=== PATIENT | male | born 1945 | race Caucasian/White ===

== ENCOUNTER 2018-01-05 10:56 | Inpatient (IN) | payer OTHER ==
[~2018-01-05] VITALS: Ht 175.3 cm; Wt 60.8 kg
--- NOTE | 2018-01-05 13:09 | ED GENERAL ADULT ---
History of Present Illness General Chief Complaint: Upper Respiratory Sx/Fever Stated Complaint: UPPER RESP INFECTION SYMPTOMS X 1 WEEK Source: patient Exam Limitations: no limitations Vital Signs & Intake/Output Vital Signs & Intake/Output Vital Signs Date Time Temp Pulse Resp B/P B/P Pulse O2 O2 Flow FiO2 Mean Ox Delivery Rate 01/08 2302 98.0 70 18 120/62 95 Room Air 01/08 2246 Room Air 01/08 1446 98.6 78 18 124/70 95 01/08 1019 Room Air 01/08 1009 Room Air 01/08 0839 79 130/70 01/08 0638 98.6 69 18 140/78 94 Room Air ED Intake and Output 01/09 0000 01/08 1200 Intake Total 700 100 Output Total 950 625 Balance -250 -525 Intake, Oral 700 100 Number 5 Bowel Movements Output, Urine 950 625 Patient 131 lb Weight Weight Bed scale Measurement Method Allergies Coded Allergies: No Known Allergies (01/05/18) Triage Note: PT TO ED WITH COUGH/CONGESTION X1.5 WEEKS. STATES THAT HE THINKS HE HAS PNA. HAS TRIED TO SEE PCP BUT UNABLE TO GET IN. change in priority Triage Nurses Notes Reviewed? yes HPI: 72-year-old male presented to the emergency department reporting 5 days of productive cough with blood-tinged sputum. He also reports about 5 days ago he started having slurred speech and noticed that his tongue was skewed towards the right, however he reports that "the dentist will fix this" this is why he did not come into the emergency department sooner. He states that he is here because of the cough as he is concerned he may have pneumonia. He denies any chest pain, shortness of breath, fevers/chills, nausea/vomiting. (Jordin LEE,Tanisha) Reconcile Medications Aspirin (Ecotrin*) 81 MG TABLET. 1 TAB PO DAILY HEART/BLOOD (Reported) stop after 4 weeks Atorvastatin Calcium 20 MG TABLET 1 TAB PO DAILY CHOLESTEROL (Reported) Bisoprolol Fumarate/Hctz (Bisoprolol-Hctz 5-6.25 MG Tab) 5 MG-6.25 MG TABLET 1 TAB PO DAILY BP (Reported) Clopidogrel Bisulfate (Plavix) 75 MG TABLET 1 TAB PO DAILY STROKE Fosinopril Sodium 20 MG TABLET 1 TAB PO DAILY BP (Reported) (Ashlie BREWER,Andrew Bean) Past History Travel History Traveled to [place] past 21 day No Medical History Any Pertinent Medical History? 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 No (Tanisha Moses) Review of Systems Review of Systems Constitutional: Reports: see HPI. EENTM: Reports: see HPI. Respiratory: Reports: see HPI. Cardiovascular: Reports: no symptoms. GI: Reports: no symptoms. Genitourinary: Reports: no symptoms. Musculoskeletal: Reports: no symptoms. Skin: Reports: no symptoms. Neurological/Psychological: Reports: see HPI. Hematologic/Endocrine: Reports: no symptoms. Immunologic/Allergic: Reports: no symptoms. All Other Systems: Reviewed and Negative (Tanisha Moses) Physical Exam Physical Exam General Appearance: well developed/nourished, no apparent distress, alert, awake , comfortable Head: atraumatic, normal appearance Eyes: Right: other (lid drop). Ears, Nose, Throat: hearing decreased (baseline), dry mucous membranes, tongue grossly deviated toward the right Respiratory: chest non-tender, no respiratory distress, rhonchi (left lower lobe ), wheezing Cardiovascular: regular rate/rhythm, normal peripheral pulses Peripheral Pulses: 3+ radial (R), 3+ radial (L) Gastrointestinal: normal bowel sounds, soft, non-tender Back: normal inspection, normal range of motion Extremities: normal inspection, normal capillary refill, normal range of motion Neurologic/Psych: no motor/sensory deficits, awake, alert, normal gait, normal mood/affect, right eye lid droop, right tongue deviation Skin: intact, normal color, warm/dry Core Measures ACS in differential dx? No CVA/TIA Diagnosis: Yes Sepsis Present: Yes Sepsis Focused Exam Completed? Yes (Tanisha Moses) ED Sepsis Exam Date of Focused Sepsis Exam: 01/05/18 Time of Focused Sepsis Exam: 1804 Sepsis Cardiac Exam: Regular Rate/Rhythm Sepsis Resp Exam: Brigido Sepsis Cap Refill Exam: <2 Sec Sepsis Peripheral Pulse Exam: Normal Sepsis Peripheral Pulse Location: Radial Sepsis Skin Color Exam: Normal for Ethnicity Skin Temp/Moisture Exam: Warm/Dry (Jordin LEE,Tanisha) Progress Differential Diagnoses I considered the following diagnoses in my evaluation of the patient: [pneumonia , PE, copd, bronchitis] Plan of Care: Orders Procedure Date/time Status Weight 01/082 Active Speech/Hearing Treatment-Indiv 01/08 UNK Complete Neuromuscular Re-ed 01/08 UNK Complete Gait Training 01/08 UNK Complete OT EVAL LOW COMPLEX 30 MIN 01/08 UNK Complete MISSING MEDICATION FORM 01/08 UNK Active Current Medications Sig/Samir Start time Last Medication Dose Stop Time Status Admin Senna/Docusate Sodium 2 TAB DAILY PRN 01/08 1015 AC 01/08 (Senokot S) 1301 Polyethylene Glycol 17 GM DAILY 01/08 1002 AC 01/08 (Miralax) 1301 Atorvastatin Calcium 20 MG 1700 01/07 1700 AC 01/08 (Lipitor) 1736 Clopidogrel Bisulfate 75 MG DAILY 01/06 1000 AC 01/08 (Plavix) 0839 Aspirin Buffered 81 MG DAILY 01/06 0900 AC 01/08 (Ecotrin) 0839 Azithromycin 500 MG DAILY 01/06 0900 AC 01/08 (Zithromax) 0839 Sodium Chloride 250 ML (Normal Saline 0.9%) Ceftriaxone Sodium 1,000 MG DAILY 01/06 0900 AC 01/08 (Rocephin) 0839 Lisinopril 20 MG DAILY 01/06 0900 AC 01/08 (Prinivil) 0839 Heparin Sodium 5,000 UNIT Q8 01/06 0600 AC 01/08 (Porcine) 2049 Acetaminophen 650 MG Q6P PRN 01/05 2145 AC (Tylenol) Laboratory Tests 01/08/18 0639: Anion Gap 11, Estimated GFR > 60, BUN/Creatinine Ratio 32.9 H, Total Bilirubin 0.7, Direct Bilirubin 0.2, AST 114 H, ALT 83 H, Alkaline Phosphatase 109, Total Protein 5.1 L, Albumin 2.4 L, CBC w Diff NO MAN DIFF REQ, RBC 5.16, MCV 84.8, MCH 28.0, MCHC 33.0, RDW 14.3, MPV 7.3 L, Gran % 80.7 H, Lymphocytes % 12.6 L, Monocytes % 6.1, Eosinophils % 0.3, Basophils % 0.3, Absolute Granulocytes 7.9 H, Absolute Lymphocytes 1.2, Absolute Monocytes 0.6, Absolute Eosinophils 0, Absolute Basophils 0 72-year-old male with 5 days of productive cough with blood-tinged sputum, as well as 5 days history of slurred speech with right-deviated tongue. -CXR - patchy infiltrate in left lower lung, patient started on solumedrol, ceftriaxone and azithromycin to cover CAP -WBC 16.8 -D dimer 657 - CTA unremarkable except potential cholestasis however non-tender abdomen so work up was not felt to be indicated -CT head unremarkable, old infarcts present -Sepsis protocol ordered - lactic acid 2.1, fluids administered, will rpt lactic acid -Discussed with Dr. Dailey and Dr. Paredes for full admission. MOD aware. Diagnostic Imaging: Viewed by Me: Radiology Read. Discussed w/RAD: Radiology Read. Radiology Impression: PATIENT: URSULA XIONG PRESENT AGE: 72 PATIENT ACCOUNT NO: [id number] : 43 LOCATION: [facility] ORDERING PHYSICIAN: Tanisha LEE SERVICE DATE: 01/05/18 EXAM TYPE: RAD - XRY- CHEST XRAY, TWO VIEWS EXAMINATION: XR CHEST CLINICAL INFORMATION: Productive cough; question pneumonia. COMPARISON: None TECHNIQUE: 2 views of the chest were obtained. FINDINGS: The heart, great vessels, pulmonary vascular mediastinum are normal. There is hyperinflation. Best seen on the lateral projection, there is a mild patchy posterior infiltrate, likely present within the left lung field. No pleural effusion or pneumothorax is seen. There is no acute osseous abnormality. IMPRESSION: A patchy infiltrate is seen in the posterior lower thorax, likely within the left lung. The appearance is suspicious for acute pneumonia. Recommend radiographic follow-up to clearance. DICTATED BY: Jack Vaughan MD DATE/TIME DICTATED:01/05/181420 PARCEL POST DELIVERY:SANDRA DATE/TIME TRANSCRIBED:01/05/181420 CONFIDENTIAL, DO NOT COPY WITHOUT APPROPRIATE AUTHORIZATION. <Electronically signed in Other Vendor System> SIGNED BY: Jack Vaughan MD 01/05/181425, PATIENT: URSULA XIONG PRESENT AGE: 72 PATIENT ACCOUNT NO: [id number] : 43 LOCATION: ER ORDERING PHYSICIAN: Tanisha LEE SERVICE DATE: 01/05/18 EXAM TYPE: CAT - CTA CHEST-PULMONARY EMBOLISM EXAMINATION: CT ANGIOGRAM OF THE CHEST WITH AND WITHOUT CONTRAST (CT PULMONARY ANGIOGRAM FOR PE) CLINICAL INFORMATION: Hemoptysis, elevated d-dimer COMPARISON: Same day chest x-ray TECHNIQUE: Prior to contrast administration, noncontrast localization images were obtained. Subsequently, multidetector volumetric imaging was performed from the thoracic inlet to below the diaphragms following the administration of 95 mL Optiray 320 intravenous contrast. No contrast reaction reported. Sagittal, coronal, and MIP oblique sagittal reformatted images were obtained on the CT workstation, uploaded to PACS, and reviewed. Total exam dose-length product 358 mGy-cm. Per the technologist, the patient was unable to lift arms for the examination. FINDINGS: QUALITY OF STUDY/CONTRAST BOLUS: Satisfactory PULMONARY ARTERIES: No central or segmental pulmonary emboli. THORACIC AORTA: No aneurysm or dissection. LUNG: Biapical pleural-parenchymal scarring, right greater than left. Subpleural apical blebs. There is near complete opacification of the left lower lobe with sparing of the lingula. Multiple tiny cystic spaces are identified within the superior segment of the left lower lobe of uncertain etiology. The left lower bronchus appears normally aerated. However, the distal branches are compressed by this large area of confluent consolidation. There is likely a trace associated pleural effusion. The left upper lobe appears clear. There are mild upper lobe centrilobular emphysematous changes. The right lung is clear aside from dependent atelectasis. No right pleural effusion. MEDIASTINUM: Heart size is within normal range. No pericardial effusion. No pathologically enlarged mediastinal or right hilar lymph nodes. An prominent left hilar lymph node measures 9 mm in short axis. No evidence of septal bowing or right heart strain. CHEST WALL/AXILLA: No axillary or internal mammary lymphadenopathy. OSSEOUS STRUCTURES: [place] degenerative changes involving the visualized thoracic spine including diffuse idiopathic skeletal hyperostosis. No suspicious lytic or blastic lesion UPPER ABDOMEN: There is likely a small amount of wall edema surrounding the gallbladder, partially imaged. No reflux of contrast into the hepatic veins to suggest elevated right heart pressures. IMPRESSION: 1. No acute pulmonary embolism. 2. Dense consolidation involving the majority of the left lower lobe suspicious for pneumonia. Recommend repeat CT in 4-6 weeks to confirm resolution of these findings. 3. Prominent left hilar lymph node, most likely reactive. 4. Gallbladder wall edema, partially imaged. Recommend correlation for right upper quadrant symptoms. It is difficult to completely exclude acute cholecystitis. VTE: negative DICTATED BY: Sita Cano MD DATE/ TIME DICTATED:01/05/181636 PARCEL POST DELIVERY:SANDRA DATE/TIME TRANSCRIBED: 01/05/181636 CONFIDENTIAL, DO NOT COPY WITHOUT APPROPRIATE AUTHORIZATION. < Electronically signed in Other Vendor System> SIGNED BY: Sita Cano MD 164, PATIENT: URSULA XIONG PRESENT AGE: 72 PATIENT ACCOUNT NO: [id number] : 43 LOCATION: [facility] ORDERING PHYSICIAN: Tanisha LEE SERVICE DATE: 01/05/18 EXAM TYPE: CAT - CT HEAD WO IV CONTRAST EXAMINATION: CT HEAD WITHOUT CONTRAST CLINICAL INFORMATION: 5 day history of slurred speech. COMPARISON: MRI brain 02/12/2017 TECHNIQUE: Contiguous axial imaging was performed from the skull base to vertex without intravenous administration of contrast. DLP: 625 mGy-cm FINDINGS: There is no evidence of acute intracranial hemorrhage or territorial infarction. No abnormal mass effect or midline shift is seen. Mcdonald to white matter differentiation is well preserved. No extra-axial fluid collections are identified. The ventricles are normal in size. There is mild to moderate low-attenuation within the periventricular white matter including a tiny hypodensity posterior to the left posterior horn of lateral ventricle, unchanged compared to the previous MRI from 2017. Lacunar infarct within the left basal ganglia region is likewise stable. The osseous structures and soft tissues are normal. The mastoid air cells and visualized portions of the paranasal sinuses are well aerated. IMPRESSION: No acute intracranial findings. No significant interval change compared to the MRI of 02/12/2017. DICTATED BY: Sita Cano MD DATE/TIME DICTATED:01/05/181621 PARCEL POST DELIVERY:SANDRA DATE/TIME TRANSCRIBED:01/05/181621 CONFIDENTIAL, DO NOT COPY WITHOUT APPROPRIATE AUTHORIZATION. <Electronically signed in Other Vendor System> SIGNED BY: Sita Cano MD 01/05/181627 Initial ED EKG: none Hand-Off Endorsed To: Andrew Dailey MD Endorsed Time: 1809 Pending: other (admission) (JordinTanisha Hartley) Comments: Patient's pneumonia severity index score is 124 (at least), this patient has mortality risk of over 9%, hospitalization recommended. (Ashlie BREWER,Andrew Bean) Departure Departure Disposition: STILL A PATIENT Condition: Stable Clinical Impression Primary Impression: Pneumonia Qualifiers: Pneumonia type: due to unspecified organism Laterality: left Lung location: lower lobe of lung Qualified Code: J18.1 - Lobar pneumonia, unspecified organism Referrals: Madi Flores DO (PCP/Family) Departure Forms: Customer Survey General Discharge Information Admission Note Spoke With: Kory Paredes MD Documentation of Exam: Documentation of any treatments & extenuating circumstances including Concerns Regarding Discharge (functional status, medication knowledge or non-compliance, living conditions, etc.) that warrant an admission rather than observation: [ needs several days of IV abx, pending blood cultures] (Tanisha Moses) Departure Prescriptions: Current Visit Scripts Clopidogrel Bisulfate (Plavix) 1 TAB PO DAILY #90 TAB PA/INSPECTING SUPERVISOR Co-Sign Statement Statement: ED Attending supervision documentation- [x] I saw and evaluated the patient. I have also reviewed all the pertinent lab results and diagnostic results. I agree with the findings and the plan of care as documented in the PA's/INSPECTING SUPERVISOR's documentation. Patient presents for evaluation of worsening shortness of breath over the past few days. Physical examination reveals rhonchi in the left lower lung field. [] I have reviewed the ED Record and agree with the PA's/INSPECTING SUPERVISOR's documentation. [] Additions or exceptions (if any) to the PAs/INSPECTING SUPERVISOR's note and plan are summarized below: [] (Ashlie BREWER,Andrew Bean) Critical Care Note Critical Care Note Critical Care Time: non-applicable (Tanisha Moses)
[2018-01-05 13:11] LABS: ABSOLUTE BASOPHIL COUNT 0.3 /CUMM (0.0-0.2); ABSOLUTE EOSINOPHIL COUNT 0 /CUMM (0.0-0.7); ABSOLUTE GRANULOCYTE CT 14.5 /CUMM (1.4-6.5); ABSOLUTE LYMPH COUNT 0.5 /CUMM (1.2-3.4); ABSOLUTE MONOCYTE COUNT 1.5 /CUMM (0.10-0.60); BASOPHIL % 1.5 % (0.0-2.0); EOSINOPHIL % 0 % (0-5); GRANULOCYTE % 86.5 % (42.2-75.2); HEMATOCRIT 48.2 % (42-52); MEAN CORPUSCULAR HGB 28.1 PG (27.0-31.0); MEAN CORPUSCULAR HGB CONC 32.9 G/DL (33.0-37.0); MEAN CORPUSCULAR VOLUME 85.5 FL (80.0-94.0); MEAN PLATELET VOLUME 7.3 FL (7.4-10.4); PLATELET COUNT 320 /CUMM (130-400); RBC DISTRIBUTION WIDTH 14.3 % (11.5-14.5); RED BLOOD CELL CT 5.64 /CUMM (4.70-6.10); WHITE BLOOD CELL COUNT 16.8 /CUMM (4.8-10.8)
[2018-01-05] MEDS ORDERED: ATORVASTATIN CA20 M1 PO (14:25)
[2018-01-05] MEDS ORDERED: FOSINOPRIL SODI20 M1 PO (14:26)
[2018-01-05] MEDS ORDERED: BISOPROLOL-HCT1 EAC1 PO (14:26)
--- NOTE | 2018-01-05 14:26 | RADIOLOGY REPORT ---
EXAMINATION: XR CHEST CLINICAL INFORMATION: Productive cough; question pneumonia. COMPARISON: None TECHNIQUE: 2 views of the chest were obtained. FINDINGS: The heart, great vessels, pulmonary vascular mediastinum are normal. There is hyperinflation. Best seen on the lateral projection, there is a mild patchy posterior infiltrate, likely present within the left lung field. No pleural effusion or pneumothorax is seen. There is no acute osseous abnormality. IMPRESSION: A patchy infiltrate is seen in the posterior lower thorax, likely within the left lung. The appearance is suspicious for acute pneumonia. Recommend radiographic follow-up to clearance.
[2018-01-05] MEDS ORDERED: ASPIRIN EC81 M1 PO (14:27)
--- NOTE | 2018-01-05 16:28 | CT SCAN REPORT ---
EXAMINATION: CT HEAD WITHOUT CONTRAST CLINICAL INFORMATION: 5 day history of slurred speech. COMPARISON: MRI brain 02/12/2017 TECHNIQUE: Contiguous axial imaging was performed from the skull base to vertex without intravenous administration of contrast. DLP: 625 mGy-cm FINDINGS: There is no evidence of acute intracranial hemorrhage or territorial infarction. No abnormal mass effect or midline shift is seen. Mcdonald to white matter differentiation is well preserved. No extra-axial fluid collections are identified. The ventricles are normal in size. There is mild to moderate low-attenuation within the periventricular white matter including a tiny hypodensity posterior to the left posterior horn of lateral ventricle, unchanged compared to the previous MRI from 2017. Lacunar infarct within the left basal ganglia region is likewise stable. The osseous structures and soft tissues are normal. The mastoid air cells and visualized portions of the paranasal sinuses are well aerated. IMPRESSION: No acute intracranial findings. No significant interval change compared to the MRI of 02/12/2017.
--- NOTE | 2018-01-05 16:49 | CT SCAN REPORT ---
EXAMINATION: CT ANGIOGRAM OF THE CHEST WITH AND WITHOUT CONTRAST (CT PULMONARY ANGIOGRAM FOR PE) CLINICAL INFORMATION: Hemoptysis, elevated d-dimer COMPARISON: Same day chest x-ray TECHNIQUE: Prior to contrast administration, noncontrast localization images were obtained. Subsequently, multidetector volumetric imaging was performed from the thoracic inlet to below the diaphragms following the administration of 95 mL Optiray 320 intravenous contrast. No contrast reaction reported. Sagittal, coronal, and MIP oblique sagittal reformatted images were obtained on the CT workstation, uploaded to PACS, and reviewed. Total exam dose-length product 358 mGy-cm. Per the technologist, the patient was unable to lift arms for the examination. FINDINGS: QUALITY OF STUDY/CONTRAST BOLUS: Satisfactory PULMONARY ARTERIES: No central or segmental pulmonary emboli. THORACIC AORTA: No aneurysm or dissection. LUNG: Biapical pleural-parenchymal scarring, right greater than left. Subpleural apical blebs. There is near complete opacification of the left lower lobe with sparing of the lingula. Multiple tiny cystic spaces are identified within the superior segment of the left lower lobe of uncertain etiology. The left lower bronchus appears normally aerated. However, the distal branches are compressed by this large area of confluent consolidation. There is likely a trace associated pleural effusion. The left upper lobe appears clear. There are mild upper lobe centrilobular emphysematous changes. The right lung is clear aside from dependent atelectasis. No right pleural effusion. MEDIASTINUM: Heart size is within normal range. No pericardial effusion. No pathologically enlarged mediastinal or right hilar lymph nodes. An prominent left hilar lymph node measures 9 mm in short axis. No evidence of septal bowing or right heart strain. CHEST WALL/AXILLA: No axillary or internal mammary lymphadenopathy. OSSEOUS STRUCTURES: [place] degenerative changes involving the visualized thoracic spine including diffuse idiopathic skeletal hyperostosis. No suspicious lytic or blastic lesion UPPER ABDOMEN: There is likely a small amount of wall edema surrounding the gallbladder, partially imaged. No reflux of contrast into the hepatic veins to suggest elevated right heart pressures. IMPRESSION: 1. No acute pulmonary embolism. 2. Dense consolidation involving the majority of the left lower lobe suspicious for pneumonia. Recommend repeat CT in 4-6 weeks to confirm resolution of these findings. 3. Prominent left hilar lymph node, most likely reactive. 4. Gallbladder wall edema, partially imaged. Recommend correlation for right upper quadrant symptoms. It is difficult to completely exclude acute cholecystitis. VTE: negative
[2018-01-05 17:16] LABS: PT 15.5 SEC (9.4-12.5); PTT 32 SEC (25-37)
--- NOTE | 2018-01-05 18:57 | History & Physical ---
Sal Zepeda 01/05/18 7627: General Information and HPI MD Statement: I have seen and personally examined URSULA XIONG and documented this H&P. The patient is a 72 year old M who presented with a patient stated chief complaint of [Acute Urticaria]. Source of Information: patient, family Exam Limitations: no limitations History of Present Illness: Patient is a 72-year-old male past medical history significant for hypertension, past smoker for 40+ years (2ppd). He is presenting to the hospital with c/o cough produtive of phelgm, and weakness in his legs. Patient states his physical ailements began about a week and a half ago, he was experiencing a cough, productive of phlegm, and decreased appetite. Up until yesterday, patient was having clear phelgm, yesterday there was a a reddish color to it, patient unable to identify blood. Patient denies fever, chills, SOB , chest pain, Palpitations, LE swelling, sick contacts and recent travel. Patient has also been expeiencing weakness since this saturday12/30/17, he states he began to experience sudden onset weakness, he has experiencing difficulties getting out of his recliner chair. On the following day when he woke up he "felt funny". Since saturday his noticed the patient's voice began to slur, and he was having difficulty swallowing, he was unable to remember certain things which he had always know, and he "used words that didnt belong in the sentence". His also noticed the patient was having difficulty walking, he would drag his feet instead of walking normally. Allergies/Medications Allergies: Coded Allergies: No Known Allergies (01/05/18) Compliance With Home Meds: GOOD Past History Travel History Traveled to [place] past 21 day No Medical History Blood Transfusion Hx: No Neurological: NONE EENT: NONE (in Right Ear), hearing loss Cardiovascular: hypertension Respiratory: NONE Gastrointestinal: umbilical hernia Hepatic: NONE Renal: NONE Musculoskeletal: falls Psychiatric: NONE Endocrine: NONE Blood Disorders: NONE Cancer(s): NONE BAR TACKER/Reproductive: NONE Surgical History Surgical History: non-contributory Past Family/Social History Psychosocial History Where do you live? Home Who Do You Live With? spouse Services at Home: None Primary Language: [place] Smoking Status: Former Smoker (quit 20yrs ago, before 2ppd ) ETOH Use: heavy use Illicit Drug Use: denies illicit drug use Living Will? no Power of [employer] Pathology Professor/HCP? no Review of Systems Review of Systems Constitutional: Denies: chills, diaphoresis, fever. EENTM: Reports: hearing changes. Cardiovascular: Denies: chest pain, orthopena, palpitations. Respiratory: Reports: cough, sputum production. Genitourinary: Denies: discharge, dysuria, pain. Neurological/Psychological: Reports: see HPI. Exam & Diagnostic Data Last 24 Hrs of Vital Signs/I&O Vital Signs Date Time Temp Pulse Resp B/P B/P Pulse O2 O2 Flow FiO2 Mean Ox Delivery Rate 01/05 2015 Room Air 01/05 1959 98.9 63 18 131/70 93 Room Air 01/05 1752 97.6 81 18 126/71 95 01/05 1351 97.4 81 18 108/65 93 Room Air 01/05 1239 Room Air 01/05 1101 98.6 96 18 102/71 93 Room Air Intake & Output 01/05 1600 01/05 0800 01/05 0000 Intake Total Output Total Balance Patient 140 lb Weight Physical Exam General Appearance Alert, Oriented X3, Cooperative Skin No Rashes HEENT Atraumatic, PERRLA, EOMI, Mucous Membr. moist/pink, Tongue Deviates to right on protrusion, bilat. icteric sclerae Neck Supple, +2 Carotid Pulse wo Bruit, No LAD Cardiovascular Regular Rate, Normal S1, Normal S2 Lungs Clear to Auscultation, Normal Air Movement Abdomen Normal Bowel Sounds, Soft, No Tenderness, Negative Cornelius's sign, Rovsing, Rebound Neurological Normal Gait, Normal Speech, Strength at 5/5 X4 Ext, Normal Tone, Sensation Intact Extremities No Cyanosis, No Edema, Normal Pulses Last 24 Hrs of Labs/David: Laboratory Tests 01/05/18 1746: Urinalysis LIGHT H, Urine Color YEL, Urine Clarity CLEAR, Urine pH 6.0, Ur Specific [place] 1.020, Urine Protein 30 H, Urine Ketones TRACE H, Urine Nitrite POS H, Urine Bilirubin NEG, Urine Urobilinogen 4.0 H, Ur Leukocyte Esterase SMALL H, Ur Microscopic SEDIMENT EXAMINED, Urine RBC 1-3, Urine WBC 5- 10 H, Ur Epithelial Cells RARE, Urine Bacteria FEW H, Urine Hemoglobin SMALL H, Urine Glucose NEG 01/05/18 1555: Lactic Acid Cancelled 01/05/18 1256: Anion Gap 17 H, Estimated GFR > 60, BUN/Creatinine Ratio 41.0 H, Glucose 167 H, Lactic Acid 2.1, Calcium 9.0, Total Bilirubin 2.2 H, Direct Bilirubin 1.3 H , AST 93 H, ALT 64, Alkaline Phosphatase 143 H, Troponin I 0.02, Total Protein 6.4, Albumin 3.2 L, Globulin 3.2, Albumin/Globulin Ratio 1.0 L, Amylase 61, Lipase 212, CBC w Diff MAN DIFF ORDERED, RBC 5.64, MCV 85.5, MCH 28.1, MCHC 32.9 L, RDW 14.3, MPV 7.3 L, Gran % 86.5 H, Lymphocytes % 3.1 L, Monocytes % 8.9, Eosinophils % 0, Basophils % 1.5, Absolute Granulocytes 14.5 H, Absolute Lymphocytes 0.5 L, Absolute Monocytes 1.5 H, Absolute Eosinophils 0, Absolute Basophils 0.3, Platelet Estimate VERIFIED BY SMEAR, Poikilocytosis 1+, [place] Cells 1+ 01/05/18 1255: PT 15.5 H, INR 1.42 H, APTT 32, D-Dimer High Sensitivty 651 H Microbiology 01/05 2143 LOWER RESP: Respiratory Culture - ORD 01/05 2143 LOWER RESP: Gram Stain - ORD 01/05 1746 URINE ROUT: Legionella Antigen - RECD 01/05 1746 URINE ROUT: Streptococcus pneumoniae Antigen (M - RECD 01/05 1746 URINE ROUT: Urine Culture - RECD 01/05 1738 BLOOD: Blood Culture - RECD 01/05 1730 BLOOD: Blood Culture - RECD Assessment/Plan Assessment: Patient is a 72-year-old male past medical history significant for hypertension, past smoker for 40+ years (2ppd). He is presenting to the hospital with c/o cough produtive of phelgm, and weakness in his legs. Problem List: 1. Pneumonia 2. Stroke 3. Jaundice 4. Hypertension #Pneumonia: community acquired pneumonia (gram positive vs gram neg. vs atypicals), patient has strong history of EtOH use and Smoking, elevated LFTs. CXR positive for Patchy infiltrate iin the posterior lower thorax in L. Lung. CTA chest shows dense consolidation of LLL. WBC = 16.8 Plan -Ceftiaxone 1000mg Qdaily, Azithromycin 500mg - TRC - Nebulizer PRN - f/u Respiratory Sputum cultures - f/u Strep pneumno and legionella #Acute Stroke: Presenting symptoms, and PE findings are consistent with diagnosis of stroke. Symptoms present more than 24 hours, residual symptoms improving but still present. CT scan of head negative for bleeding, Plan: - Asprin 81mg - Atorvastatin 40mg - Physical, Occupation, and speech Therapy - f/u Lipid profile - f/u HbA1c - f/u TSH - Neurology Consult #Jaundice: Painless Jaundice, elevated T.bili = 2.6, Direct Bilirubin 1.3, ALP 143. CTA chest- thickening of gallbladder, difficult to exclude cholecystitis. Etiologies: alcholic hepatitis vs viral hepatitis vs biliary obstruction vs pancreatic obstruction. Plan: - CT Abdomen - Viral Hepatits Panel - Trend LFTs #Hypertension plan: - Lisinopril 20mg As Ranked By This Provider Problem List: 1. Pneumonia Qualifiers Pneumonia type: due to unspecified organism Laterality: left Lung location: lower lobe of lung Qualified Code: J18.1 - Lobar pneumonia, unspecified organism Core Measures/Misc (03/10) Acute Coronary Syndrome ACS Diagnosis: No Congestive Heart Failure Congestive Heart Failure Diagnosis No Cerebrovascular Accident CVA/TIA Diagnosis: Yes NIH Stroke Scale: Total 0 VTE (View Protocol) VTE Risk Factors Age>40 No Mechanical VTE Prophylaxis d/t Early Ambulation No VTE Pharm Prophylaxis d/t Supratherapeutic INR Sepsis (View protocol) Sepsis Present: No If YES complete Sepsis Event Note If YES complete Sepsis Event Note Jaclyn BREWERManuel 01/05/18 6598: Core Measures/Misc (03/10) Sepsis (View protocol) If YES complete Sepsis Event Note If YES complete Sepsis Event Note Resident Review Statement Resident Statement: discussed with communications intern Other Findings: 72-year-old male with past medical history of hypertension, hyperlipidemia, and right-sided decreased hearing, presented to the emergency department with 2 symptoms-- worsening productive cough, and leg weakness/slurred speech/tongue deviation. According the patient and his , the patient started having some dry cough, which later progressed to productive cough with reddish sputum, but no associated fever/chills, chest pain/shortness of breath, sick contacts, recent travels. Patient does not have any abdominal pain, but had some nausea yesterday with one episode of minimal nonbloody vomiting. No anorexia or weight changes recently. His other symptom is of sudden weakness when he wanted to get up from a reclining chair, but was unable to do so due to sudden bilateral lower extremity weakness on Saturday (12/31/17). He also had slurring of speech, and tongue deviated to the right upon protrusion, word salad, which since then has gradually improved but the patient still has lower extremity weakness which is better, slurring of speech, tongue deviation, but as well oriented, comprehends well, and responds appropriately. He does not have history of any head trauma, fall, bowel/bladder incontinence, changes in sensation, blurring of vision, double vision, facial deviation. Labs and images as mentioned above. He is being admitted in the general medical floor for the management of following issues: #Community-acquired pneumonia Patient's clinical feature of worsening respiratory symptoms, and because of finding of consolidation, is suggestive of community-acquired pneumonia. His liver function is abnormal, which is also seen in some atypical pneumonia, thus needs broad coverage with both ceftriaxone and azithromycin while we wait for lower respiratory cultures. He does not have increased oxygen demand but would definitely benefit from respiratory therapy evaluation has his bilateral air entry is poor. I doubt that he would benefit from any steroids at this time. Will follow urinary streptococcal and Legionella antigen as well. #Possible acute stroke, with resolving symptoms, >24 hr duration ago Patient's clinical feature of sudden onset bilateral leg weakness, slurring of speech, tongue deviation, lasting more than 24 hours, which is now gradually resolving, still with gross weakness and slurring of speech, tongue deviation is suggestive of stroke, likely resolving. His CAT scan is negative for any bleed, and when compared with previous MRI shows some lacunar infarcts, but no gross area of acute ischemia. However he would benefit from neurology consultation, frequent neurochecks, continuation of aspirin, and an increased dose to high intensity statin. Need to follow HbA1c, TSHr and lipid profile in the morning. Would defer for further cardiac testing until morning, for e.g. echocardiogram. PT, OT, ST has been ordered already. #Abnormal liver function test, with gallbladder wall thickening Patient has abnormal liver function test in the context of gallbladder wall thickening with a negative Cornelius sign, and no changes in his bowel/bladder function recently. He does have icterus, and has history of chronic alcoholism, which makes alcoholic hepatitis likely. However, other causes of abnormal liver function test like viral hepatitis needs to be ruled out. Alongside, any pancreaticobiliary abnormality has to be ruled out as well which can be done by CT abdomen in the morning. Patient has been kept nothing by mouth for the same reason. Atypical pneumonia can sometimes cause abnormal liver function test, which typically resolves after the primary infection is treated. Would defer decision to consult GI to the morning team after obtaining imaging (CT abd- pelvis) and blood reports, including viral hepatitis, repeat LFTs. #Will continue his home dose of antiHTN meds,, but holding Bisoprolol/HCTZ for logistic reason. Plan to restart it as soon as possible. #Diet: Patient passed bedside swallow eval and can eat, HHD. #DVT ppx: SQ Heparin (risk of hemorrhagic transformation reduces as days pass by , liang with no CT changes of significant ischemic zone). #Code status: Full code Bright BREWER,Walton 01/05/18 6318: General Information and HPI MD Statement: I have seen and personally examined URSULA XIONG and documented this H&P. The patient is a 72 year old M who presented with a patient stated chief complaint of [cough and lower extremitiy weakness]. Source of Information: patient Exam Limitations: no limitations Allergies/Medications Home Med list Aspirin (Ecotrin*) 81 MG TABLET.DR 1 TAB PO DAILY HEART/BLOOD (Reported) Atorvastatin Calcium 20 MG TABLET 1 TAB PO DAILY CHOLESTEROL (Reported) Bisoprolol Fumarate/Hctz (Bisoprolol-Hctz 5-6.25 MG Tab) 5 MG-6.25 MG TABLET 1 TAB PO DAILY BP (Reported) Fosinopril Sodium 20 MG TABLET 1 TAB PO DAILY BP (Reported) Past History Medical History EENT: hearing loss Cardiovascular: hypertension Gastrointestinal: umbilical hernia Musculoskeletal: falls Past Family/Social History Psychosocial History Smoking Status: Former Smoker ETOH Use: heavy use Illicit Drug Use: denies illicit drug use Employment History Employment Retired Review of Systems Review of Systems Constitutional: Reports: see HPI. Exam & Diagnostic Data Last 24 Hrs of Vital Signs/I&O Vital Signs Date Time Temp Pulse Resp B/P B/P Pulse O2 O2 Flow FiO2 Mean Ox Delivery Rate 01/05 2015 Room Air 01/05 1959 98.9 63 18 131/70 93 Room Air 07/15 1752 97.6 81 18 126/71 95 01/05 1351 97.4 81 18 108/65 93 Room Air 01/05 1239 Room Air 01/05 1101 98.6 96 18 102/71 93 Room Air Intake & Output 01/05 1600 01/05 0800 01/05 0000 Intake Total Output Total Balance Patient 140 lb Weight Physical Exam General Appearance Alert, Oriented X3, Cooperative, No Acute Distress Skin No Rashes HEENT Atraumatic, PERRLA, EOMI Neck Supple, No JVD, +2 Carotid Pulse wo Bruit Cardiovascular Regular Rate, Normal S1, Normal S2 Lungs Clear to Auscultation, Normal Air Movement Abdomen Normal Bowel Sounds, Soft, No Tenderness, Negative Cornelius's sign, Rovsing, Rebound Last 24 Hrs of Labs/David: Laboratory Tests 01/05/18 1746: Urinalysis LIGHT H, Urine Color YEL, Urine Clarity CLEAR, Urine pH 6.0, Ur Specific [place] 1.020, Urine Protein 30 H, Urine Ketones TRACE H, Urine Nitrite POS H, Urine Bilirubin NEG, Urine Urobilinogen 4.0 H, Ur Leukocyte Esterase SMALL H, Ur Microscopic SEDIMENT EXAMINED, Urine RBC 1-3, Urine WBC 5- 10 H, Ur Epithelial Cells RARE, Urine Bacteria FEW H, Urine Hemoglobin SMALL H, Urine Glucose NEG 01/05/18 1555: Lactic Acid Cancelled 01/05/18 1256: Anion Gap 17 H, Estimated GFR > 60, BUN/Creatinine Ratio 41.0 H, Glucose 167 H, Lactic Acid 2.1, Calcium 9.0, Total Bilirubin 2.2 H, Direct Bilirubin 1.3 H , AST 93 H, ALT 64, Alkaline Phosphatase 143 H, Troponin I 0.02, Total Protein 6.4, Albumin 3.2 L, Globulin 3.2, Albumin/Globulin Ratio 1.0 L, Amylase 61, Lipase 212, CBC w Diff MAN DIFF ORDERED, RBC 5.64, MCV 85.5, MCH 28.1, MCHC 32.9 L, RDW 14.3, MPV 7.3 L, Gran % 86.5 H, Lymphocytes % 3.1 L, Monocytes % 8.9, Eosinophils % 0, Basophils % 1.5, Absolute Granulocytes 14.5 H, Absolute Lymphocytes 0.5 L, Absolute Monocytes 1.5 H, Absolute Eosinophils 0, Absolute Basophils 0.3, Platelet Estimate VERIFIED BY SMEAR, Poikilocytosis 1+, [place] Cells 1+ 01/05/18 1255: PT 15.5 H, INR 1.42 H, APTT 32, D-Dimer High Sensitivty 651 H Microbiology 01/05 2143 LOWER RESP: Respiratory Culture - ORD 01/05 2143 LOWER RESP: Gram Stain - ORD 01/05 1746 URINE ROUT: Legionella Antigen - COMP 01/05 174 URINE ROUT: Streptococcus pneumoniae Antigen (M - COMP 01/05 174 URINE ROUT: Urine Culture - RECD 01/05 173 BLOOD: Blood Culture - RECD 01/05 173 BLOOD: Blood Culture - RECD Diagnostic Data CXR Results A patchy infiltrate is seen in the posterior lower thorax, likely within the left lung. The appearance is suspicious for acute pneumonia. Recommend radiographic follow-up to clearance. Other Results CTA - Dense consolidation involving the majority of the left lower lobe suspicious for pneumonia. Recommend repeat CT in 4-6 weeks to confirm resolution of these findings. - Prominent left hilar lymph node, most likely reactive. - Gallbladder wall edema, partially imaged. Recommend correlation for right upper quadrant symptoms. It is difficult to completely exclude acute cholecystitis. Core Measures/Misc (03/10) Sepsis (View protocol) If YES complete Sepsis Event Note If YES complete Sepsis Event Note Attending MD Review Statement Attending Statement Attending MD Statement: examined this patient, discuss w/resident/PA/MANAGING MANAGER, agreed w/resident/PA/MANAGING MANAGER, reviewed EMR data (avail), reviewed images, amended to note Attending Assessment/Plan: This Patient is a 72-year-old white male with a significant past medical history for hypertension, past smoker for 40+ years (2ppd). He is presenting to the hospital with c/o cough productive of phlegm, and weakness in his legs. He was in his usual state of health until about a week and a half ago, he was experiencing a cough, productive of phlegm, and decreased appetite. Yesterday there was a reddish color to his sputum. The patient has also been experiencing weakness since six days prior to admission, he states he began to experience sudden onset weakness, he has experiencing difficulties getting out of his recliner chair. On the following day when he woke up he had "felt funny". Since Saturday his noticed the patient's voice began to slur, and he was having difficulty swallowing, he was unable to remember certain things which he had always know, he "used words that didnt belong in the sentence". His also noticed the patient was having difficulty walking, he would drag his feet instead of walking normally. He is on baby aspirin at home. He was found to be afebrile with an elevated WBC count. Cultures pending and his CXR shows a patchy infiltrate in the posterior lower thorax, left lung. CTA Chest shows Dense consolidation involving the majority of the left lower lobe suspicious for pneumonia. Gallbladder wall edema, partially imaged. Recommend correlation for right upper quadrant symptoms. LFTs are elevated. Currently being treated for community-acquired pneumonia, neurologic changes and will need further workup for gallbladder edema and elevated LFTs.
[2018-01-06 06:29] VITALS: BP 118/70
--- NOTE | 2018-01-06 07:27 | PN- Housestaff ---
See Addendum Subjective Follow-up For: Pneumonia Subjective: Patient seen and examined bedside, no acute events overnight, afebrile. Patient states that his cough is improved, and that he is feeling better. Denies fever or night sweats, chills, blurry vision, difficulty swallowing, tingling, numbness, weakness. Review of Systems Constitutional: Reports: see HPI. Objective Last 24 Hrs of Vital Signs/I&O Vital Signs Date Time Temp Pulse Resp B/P B/P Pulse O2 O2 Flow FiO2 Mean Ox Delivery Rate 01/06 0650 97.9 01/06 0629 68 20 118/70 94 Room Air 01/05 2015 Room Air 01/05 1959 98.9 63 18 131/70 93 Room Air 01/05 1752 97.6 81 18 126/71 95 01/05 1351 97.4 81 18 108/65 93 Room Air 01/05 1239 Room Air 01/05 1101 98.6 96 18 102/71 93 Room Air Intake & Output 01/06 0800 01/06 0000 01/05 1600 Intake Total 160 Output Total 300 150 Balance -300 10 Intake, Oral 160 Output, Urine 300 150 Patient 140 lb 140 lb Weight Weight Reported by Patient Measurement Method Physical Exam General Appearance: Alert, Oriented X3, Cooperative Skin: No Rashes HEENT: Atraumatic, PERRLA, EOMI Neck: Supple, No LAD Cardiovascular: Regular Rate, Normal S1, Normal S2 Lungs: Clear to Auscultation, Normal Air Movement Abdomen: Normal Bowel Sounds, Soft, No Tenderness Neurological: Strength at 5/5 X4 Ext, Normal Tone, Sensation Intact, Tongue deviates to right on protrusion Extremities: No Cyanosis, No Edema, Normal Pulses Vascular: Normal Pulses, Pulses Symmetrical Assessment/Plan Assessment: Patient is a 72-year-old male past medical history significant for hypertension, past smoker for 40+ years (2ppd). He is presenting to the hospital with c/o cough produtive of phelgm, and weakness in his legs. Problem List: 1. Pneumonia 2. Stroke 3. Jaundice 4. Hypertension #Pneumonia: community acquired pneumonia (gram positive vs gram neg. vs atypicals), patient has strong history of EtOH use and Smoking, elevated LFTs. CXR positive for Patchy infiltrate iin the posterior lower thorax in L. Lung. CTA chest shows dense consolidation of LLL. Legionella and Stre. pneumo is negative. WBC = 16.8, trending down to 14.2 Plan -Ceftiaxone 1000mg Qdaily, Azithromycin 500mg - TRC - Nebulizer PRN - f/u Respiratory Sputum cultures #Acute Stroke while on 81mg at home: Presenting symptoms, and PE findings are consistent with diagnosis of stroke. Symptoms present more than 24 hours, residual symptoms improving but still present. CT scan of head negative for bleeding. MRI negative for acute bleeds or infarcts, presence of chronic microvascular ischemia and lacunar infarcts. Plan: - Plavix 75mg - Atorvastatin 40mg - Physical, Occupation, and speech Therapy - Neurology Consult - Echocardiogram #Jaundice: Painless Jaundice, elevated T.bili = 2.6, Direct Bilirubin 1.3, ALP 143. CTA chest- thickening of gallbladder, difficult to exclude cholecystitis. Etiologies: alcholic hepatitis vs viral hepatitis vs biliary obstruction vs pancreatic obstruction. CT abdomen shows Gallbladder thickening with small layering of calcified gallstones, findings suspicious for acute cholecystitis. T.bili and ALP normalized on 01/06/18. Hep panel Non-reactive Plan: - Trend LFTs until normalize #Hypertension plan: - Lisinopril 20mg Patient will be transferred to [facility], as he appears to have suffered an acute stroke on saturday12/31/17. Problem List: 1. Pneumonia Pain Ratin Pain Location: n/a Pain Goal: Remain pain free Pain Plan: n.a Tomorrow's Labs & Rationales: CBC, BEP
[2018-01-06 08:36] LABS: ABSOLUTE BASOPHIL COUNT 0 /CUMM (0.0-0.2); ABSOLUTE EOSINOPHIL COUNT 0 /CUMM (0.0-0.7); ABSOLUTE LYMPH COUNT 0.8 /CUMM (1.2-3.4); ABSOLUTE MONOCYTE COUNT 0.4 /CUMM (0.10-0.60); BASOPHIL % 0 % (0.0-2.0); EOSINOPHIL % 0 % (0-5); HEMATOCRIT 44.7 % (42-52); MEAN CORPUSCULAR HGB 28.2 PG (27.0-31.0); MEAN CORPUSCULAR HGB CONC 33.3 G/DL (33.0-37.0); MEAN CORPUSCULAR VOLUME 84.8 FL (80.0-94.0); MEAN PLATELET VOLUME 7.3 FL (7.4-10.4); PLATELET COUNT 318 /CUMM (130-400); RBC DISTRIBUTION WIDTH 14.1 % (11.5-14.5); RED BLOOD CELL CT 5.28 /CUMM (4.70-6.10); WHITE BLOOD CELL COUNT 14.2 /CUMM (4.8-10.8)
[2018-01-06 10:11] LABS: GRANULOCYTE % 91.5 % (42.2-75.2)
--- NOTE | 2018-01-06 11:14 | Event Note ---
Event Note Event Note: S: Mr. Thapa is a 72-year-old male admitted for cough and weakness being treated for pneumonia also noted to have right-sided weakness with tongue deviation to the right and history of lacunar stroke likely secondary to new acute onset stroke. It seems like the symptoms began on 12/31/17 but the patient was initially admitted to general medicine without a stroke workup. B: Mr. Thapa is a 72-year-old male with past medical history of hypertension here being treated for pneumonia. A/R: Patient is a history of a lacunar stroke that is evident on the dry CT scan but he is now presenting with signs and symptoms of a new acute stroke. Even though the symptoms started on 12/31/17, telemetry monitoring and workup are still warranted. Stroke occurred while the patient was on aspirin and so we will start him on clopidogrel, high-dose statin, perform MRI brain, CTA head/ neck with IV contrast, echocardiogram, neurology and cardiology consults, and transfer to telemetry. He is currently n.p.o. pending swallow evaluation as well.
--- NOTE | 2018-01-06 12:07 | MRI REPORT ---
EXAMINATION: MR BRAIN WITHOUT CONTRAST CLINICAL INFORMATION: Stroke. COMPARISON: CT scan of the head 01/05/2018. MRI scan the brain 02/12/2017. TECHNIQUE: MRI of the brain without contrast was obtained using routine sequences. FINDINGS: No diffusion abnormalities are identified to suggest an acute or subacute infarct. No mass effect or midline shift is seen. The ventricles and sulci are commensurately prominent consistent with mild diffuse volume loss. There is a small cavum velum interpositum. The study redemonstrates multiple scattered areas of T2 and FLAIR hyperintensity in the periventricular and subcortical white matter, consistent with chronic microvascular ischemic disease. There is a lacunar infarct in the left basal ganglia anteriorly, and there are small lacunar infarcts posterior to the bodies of the lateral ventricles, more prominent on the left. There is a lacunar infarct in the right cerebellar hemisphere. Overall, these findings appear stable. No discrete extra-axial fluid collections are seen; there is mild commensurate prominence of the extra-axial CSF around the cerebral convexities and midbrain. The brainstem appears normal. No pathologic magnetic susceptibility artifact is identified on the gradient refocused acquisition. The craniovertebral junction, marrow signal, and midline structures are normal. The major intracranial flow-voids at the level of the [place] are preserved. The dural venous sinus flow-voids are maintained. There is moderate fluid at the left mastoid tip. There are cysts in the bilateral inferior maxillary sinuses. IMPRESSION: 1. There are no acute bleeds or infarcts. No masses are demonstrated. 2. There is diffuse volume loss and there are chronic microvascular ischemic disease and lacunar infarcts.
--- NOTE | 2018-01-06 12:35 | CT SCAN REPORT ---
EXAMINATION: CT ANGIOGRAM OF THE HEAD CT ANGIOGRAM OF THE NECK CLINICAL INFORMATION: Stroke and tongue deviation. COMPARISON: MRI scan earlier 01/06/[address] scan of the head 01/05/2018. TECHNIQUE: Test bolus series followed by intravenous administration 70 mL of Optiray 350. Helical imaging was performed in the axial plane from the mediastinum to the skull vertex. A post contrast contrast axial CT scan of the head was obtained. The degree of stenosis is based off NASCET criteria. The data was processed at the space technologist workstation for generation of MIP images. Three-dimensional volume rendered reformatted images were also generated at an offline 3-D workstation. DLP: 2048.9 mGy-cm FINDINGS: CT Head: There is no evidence of acute intracranial hemorrhage or territorial infarction. No abnormal mass-effect or midline shift is seen. Mcdonald to white matter differentiation is well preserved. No extra-axial fluid collections are identified. There is no abnormal enhancement. The ventricles and sulci are slightly commensurately prominent consistent with mild diffuse volume loss. There are areas of low-attenuation the periventricular and subcortical white matter consistent with chronic microvascular ischemic disease. Lacunar infarcts are redemonstrated in the left basal ganglia, posterior to the left greater than right bodies of the lateral ventricles and in the right cerebellar hemisphere. There are no acute osseous findings. There are degenerative changes of the temporomandibular joints. The soft tissues are unremarkable. There is fluid in the left mastoid air cells. There are retention cysts in the bilateral maxillary sinuses. There is a mildly expansile low density lesion in the anterior left maxilla, which is not related to any dental structures at present. There is a small focus of increased density centrally. It is nonspecific, and may be consistent with sequelae of a periapical granuloma, although an odontogenic cyst cannot be excluded given its position. CTA Neck: There are multiple atheromatous calcifications of the aortic arch. There is a classic configuration of the arch. There are atheromatous calcifications at the origin of the right subclavian artery. Both subclavian arteries are widely patent. The bilateral common carotid arteries are widely patent. There are mild atheromatous calcifications of the cavernous internal carotid arteries bilaterally. There is no significant stenosis. Both cervical internal carotid arteries are widely patent. The origins of both vertebral arteries are well-demonstrated. The left vertebral artery is markedly dominant compared to the right. Although the right vertebral artery has a thinner caliber, it appears to be uniform and patent throughout its cervical course extending intradurally. Nonvascular: There are emphysematous changes in the upper lung zones bilaterally. There is pleural-parenchymal scarring at the right lung apex. There are subpleural bullae, bilaterally. The thyroid gland has heterogenous density end there is a 5 mm area of low density nodule in the right lobe. There is a 1.6 cm sebaceous cyst in the right mid neck laterally. There is no cervical lymphadenopathy. CTA Head: The cavernous internal carotid arteries are patent bilaterally. The supraclinoid internal carotid arteries and their bifurcations are normal. The anterior and middle cerebral arteries bilaterally demonstrate uniform caliber without evidence of focal stenosis, aneurysm or vascular malformation. The anterior communicating artery is normal. In the posterior circulation the left vertebral artery is dominant. There is a minimal amount of atheromatous calcification without significant stenosis in the inferior left vertebral artery. The basilar artery is tortuous but but has uniform caliber. The right posterior cerebral artery arises primarily off the anterior circulation which is a normal variant. The posterior cerebral arteries are patent bilaterally. The venous sinuses opacify normally. IMPRESSION: 1. There are no acute bleeds or territorial infarcts. There are no masses or areas of abnormal enhancement. 2. There is mild diffuse volume loss. There are chronic microvascular ischemic changes and lacunar infarcts. 3. There are degenerative changes of the temporomandibular joints. There is an expansile cyst in the anterior left mandible. 4. There are mild atheromatous calcifications in the arch, carotid bifurcations and left vertebral artery. There are no focal stenoses, aneurysms or vascular malformations in the head or neck vascular structures. 5. The thyroid gland has heterogenous density with a 5 mm area of low density. In view of the patient's age and sex a nonemergent thyroid ultrasound is suggested for further assessment.
--- NOTE | 2018-01-06 13:42 | Event Note ---
Event Note Event Note: Patient is a 72-year-old male past medical history significant for hypertension, hyperlipidemia, past smoker for 40+ years (2ppd). He presented to the hospital with c/o cough produtive of phelgm, and weakness in his legs. His other symptom is of sudden weakness when he wanted to get up from a reclining chair, but was unable to do so due to sudden bilateral lower extremity weakness on Saturday (12/31/17). He also had slurring of speech, and tongue deviated to the right upon protrusion, word salad, which since then has gradually improved but the patient still has lower extremity weakness which is better, slurring of speech, tongue deviation, but as well oriented, comprehends well, and responds appropriately. He does not have history of any head trauma, fall, bowel/bladder incontinence, changes in sensation, blurring of vision, double vision, facial deviation. Patient was initially admitted to [facility] on 01/05/2018 and later transferred to telemetry on 01/06/2018 for further stroke workup. #Community-acquired pneumonia Patient presented with worsening productive cough with chest x-ray findings suggestive of pneumonia. He was admitted initially to general medicine for management of community-acquired pneumonia. Given his strokelike symptoms, ongoing for last 1 week there is possibility of aspiration leading to pneumonia. * Monitor vitals every shift * Maintain saturation above 90 * Continue IV ceftriaxone and azithromycin * Follow-up blood cultures, sputum cultures * Monitor for fever, leukocytosis. Possible subacute stroke Patient's clinical feature of sudden onset bilateral leg weakness, slurring of speech, tongue deviation, lasting more than 24 hours, which is now gradually resolving, still with weakness and slurring of speech, tongue deviation is suggestive of stroke, likely resolving. His CAT scan is negative for any bleed, and when compared with previous MRI shows some lacunar infarcts, but no gross area of acute ischemia. * neurology consultation * frequent neurochecks * MRI head was done which showed no acute bleed or infarcts * plavix 75 * aspirin 81 * Lipitor 80 * Echocardiogram pending * Cardiology was consulted * Passed bedside swallow/formal swallow * PT OT * Speech therapy Gallbladder wall thickening Patient has abnormal liver function test in the context of gallbladder wall thickening with a negative Cornelius sign. He does have icterus, and has history of chronic alcoholism, which makes alcoholic hepatitis likely. However, other causes of abnormal liver function test like viral hepatitis needs to be ruled out. Atypical pneumonia can sometimes cause abnormal liver function test, which typically resolves after the primary infection is treated. * Follow-up hepatitis panel * Repeat LFTs in a.m. * Alcohol cessation counseling * CAT scan abdomen showed mild gallbladder wall thickening and enhancement of gallbladder with tiny calcified gallstones. * Will get ultrasound abdomen Abnormal urine analysis Urine analysis positive for nitrite, esterase, WBCs and bacteria. He is asymptomatic denied any frequency urgency dysuria fever, chills. However he has leukocyte count elevation. * Urine cultures growing gram-positive cocci * Will follow up final urine cultures and sensitivities * Adjust antibiotics accordingly Hypertension Will continue his home dose of antiHTN meds LISINOPRIL but holding Bisoprolol/HCTZ #Diet: REGULAR DIET #DVT ppx: SQ Heparin #Code status: Full code
--- NOTE | 2018-01-06 14:17 | Cons- Cardiology ---
General Information and HPI Consulting Request Date of Consult: 01/06/18 Requested By: Kory Paredes MD Reason for Consult: Suspected stroke. Source of Information: patient, family, old records Exam Limitations: clinical condition, physical impairment History of Present Illness: Mr. Oj Thapa is a 72-year-old male with a history of former heavy tobacco use (discontinued a 2 ppd 40+ yrs history ~20 years ago), hypertension , dyslipidemia, and lacunar stroke by head CT who presented to the ED on with a 1-1/2 week of productive cough, congestion, decreased by mouth intake, without any shortness of breath, lower extremity edema, chest discomfort , palpitations, fever, chills, sick contacts, etc. Additionally, he has been expeiencing generalized weakness since Saturday, 2017 with difficulty arising from his recliner. After awakening on 12/31/2017 he "felt funny", had difficulty with his memory, speech, swallowing, and gait. Allergies/Medications Allergies: Coded Allergies: No Known Allergies (01/05/18) Home Med List: Aspirin (Ecotrin*) 81 MG TABLET.DR 1 TAB PO DAILY HEART/BLOOD (Reported) stop after 4 weeks Atorvastatin Calcium 20 MG TABLET 1 TAB PO DAILY CHOLESTEROL (Reported) Bisoprolol Fumarate/Hctz (Bisoprolol-Hctz 5-6.25 MG Tab) 5 MG-6.25 MG TABLET 1 TAB PO DAILY BP (Reported) Clopidogrel Bisulfate (Plavix) 75 MG TABLET 1 TAB PO DAILY STROKE Fosinopril Sodium 20 MG TABLET 1 TAB PO DAILY BP (Reported) Review of Systems Review of Systems: A 14 point system review was obtained was noncontributory, other than as above. Past History Travel History Traveled to [place] past 21 day No Medical History Blood Transfusion Hx: No Neurological: NONE EENT: hearing loss Cardiovascular: hypertension, hyperlipidemia Respiratory: NONE Gastrointestinal: umbilical hernia Hepatic: NONE Renal: NONE Musculoskeletal: falls Psychiatric: NONE Endocrine: NONE Blood Disorders: NONE Cancer(s): NONE MENTAL HEALTH PROGRAM SPECIALIST/Reproductive: NONE Surgical History Surgical History: non-contributory Psychosocial History Where Do You Live? Home Who Do You Live With? spouse Services at Home: None Primary Language: Mohawk Smoking Status: Former Smoker ETOH Use: heavy use Illicit Drug Use: denies illicit drug use Living Will? no Power of Extrusion Line Operator/HCP? no Employment History Employment: Retired Exam & Diagnostic Data Vital Signs and I&O Vital Signs Date Time Temp Pulse Resp B/P B/P Pulse O2 O2 Flow FiO2 Mean Ox Delivery Rate 01/06 1349 Room Air 01/06 0851 68 118/70 01/06 0800 Room Air 01/06 0650 97.9 01/06 0629 68 20 118/70 94 Room Air 01/05 2015 Room Air 01/05 1959 98.9 63 18 131/70 93 Room Air 01/05 1752 97.6 81 18 126/71 95 Intake & Output 01/06 1600 01/06 0800 01/06 0000 01/05 1600 01/05 0800 01/05 0000 Intake Total 160 Output Total 300 150 Balance -300 10 Intake, Oral 160 Output, Urine 300 150 Patient 140 lb 140 lb Weight Weight Reported by Patient Measurement Method Physical Exam: Well-developed, thin elderly male in no acute distress. Vital signs: See above. HEENT: Normocephalic, atraumatic, EOMI, slightly dry mucous membranes. Neck: No JVD, no bruits. Lungs: Decreased breath sounds bilaterally. Heart: S1, S2 no murmur, gallop, or rub. PMI not well felt. Abdomen: Soft, nontender, positive bowel sounds. Extremities: No edema. Diagnostic Data CXR Results 01/05/2018: 1. A patchy infiltrate is seen in the posterior lower thorax, likely within the left lung. The appearance is suspicious for acute pneumonia. 2. Recommend radiographic follow-up to clearance. Other Results Brain MRI 01/06/2018: 1. There are no acute bleeds or infarcts. No masses are demonstrated. 2. There is diffuse volume loss and there are chronic microvascular ischemic disease and lacunar infarcts. Assessment/Plan Assessment/Plan [id number] w/ hx fmr heavy tob use (2 ppd 40+ yrs), HTN, HLD, stroke (lacunar by head CT) who presented to the ED on 01/05/2018 with a 1-1/2 wk of prod cough, congestion, decreased by mouth intake, w/o SOB, LE edema, CP, palps, fever, chills, sick contacts, etc. Additionally, he has been expeiencing generalized weakness since Saturday, 2017 w/ difficulty arising from his recliner. After awakening on 12/31/2017 he "felt funny", had difficulty w/ his memory, speech, swallowing, and gait w/ the suspicion that he is having a neurological event. Recommendation: * No evidence of ECG in computer and would obtain a baseline tracing. * Transferred to telemetry to exclude paroxysmal atrial fibrillation. * Echocardiogram to help exclude a cardioembolic source for his symptoms. * Exclude carotid artery disease. * Enhance antiplatelet regimen, if no contraindication. * High dose statin therapy. * Swallowing evaluation. * Neurology consultation. * DVT prophylaxis. Consult Acknowledgment - Thank you for your consult request.
--- NOTE | 2018-01-06 14:24 | CT SCAN REPORT ---
EXAMINATION: CT ABDOMEN AND PELVIS WITH CONTRAST CLINICAL INFORMATION: Abnormal LFTs. Long history of EtOH use. Gallbladder wall thickness. Amylase lipase normal. Rule out pancreatic abnormality. COMPARISON: CTA of the chest dated 01/05/2018. CT scan of the abdomen and pelvis dated 01/10/2009. TECHNIQUE: Multidetector CT volumetric acquisition of the abdomen and pelvis was performed after the administration of 50 mL of intravenous Optiray 350. The data set was reformatted in the sagittal and coronal planes and reviewed on an independent workstation. DLP: 280.64 mGy-cm. FINDINGS: LOWER CHEST: There is dense consolidation seen in the left lower lobe and dependent atelectatic changes in the right lower lobe. Some minimal platelike atelectasis is seen medially within the lingula and right middle lobe. No pleural effusion is noted. LIVER, GALLBLADDER, BILIARY TREE: Liver normal size and attenuation. No focal cystic or solid mass or intra-or extrahepatic ductal dilatation. Hepatic and portal veins patent. There is mild wall thickening and enhancement of the gallbladder noted with multiple tiny calcified gallstone seen layering in the dependent portion of the gallbladder. Minimal pericholecystic reticular opacities noted. Findings are suggestive of acute cholecystitis. PANCREAS: Diffusely atrophic and otherwise unremarkable. No ductal dilatation, mass, or surrounding stranding. SPLEEN: Normal size and appearance. Splenic vein patent. ADRENAL GLANDS AND KIDNEYS: Adrenal glands normal. The right kidney is asymmetrically smaller compared to the contralateral left kidney, measuring 8.0 cm versus 10.7 cm on the left side. Prominent lobulation of the right renal cortex is seen and mild renal cortical thinning is noted. There is a 0.7 cm low-attenuation mass in the upper pole of the right kidney, too small to characterize, but unchanged dating back to 2008, consistent with a benign etiology, such as a cyst. No suspicious focal mass, hydronephrosis, nephrolithiasis or perinephric stranding. There is a prominent extrarenal pelvis seen on the right side with slight dilatation of the right renal collecting system and decompression of the right ureter, consistent with a UPJ physiology. Small focal cortical scar is seen in the upper pole of the left kidney. URETERS AND BLADDER: Ureters decompressed and within normal limits. Bladder is opacified by the excreted contrast and is markedly distended, extending into the lower abdomen. Two right-sided bladder diverticula are seen. PELVIC ORGANS: Unremarkable. GASTROINTESTINAL TRACT: Moderate amount of fecal residue seen in the colon, especially in the descending colon and the distended rectum. The few scattered descending colonic and sigmoid diverticula are seen with no evidence of acute diverticulitis. Small bowel loops decompressed and unremarkable. Appendix in right lower quadrant normal. LYMPHOVASCULAR STRUCTURES: Abdominal aorta normal in caliber. Mild atherosclerotic calcifications of the aorta and branch vessels are seen, including the coronary arteries. No periaortic collections. No abdominal or pelvic adenopathy or free fluid collection. BONES: Moderate vertebral spondylosis is seen in the lower thoracic and upper and mid lumbar spine. Mild spondylosis also seen in the lower lumbar spine. IMPRESSION: 1. Abnormal appearance of the gallbladder with wall thickening and enhancement and a stable small layering calcified gallstone seen. Findings are suspicious for acute cholecystitis. Close clinical correlation requested. No evidence of common bile duct obstruction or choledocholithiasis. 2. The pancreas is diffusely atrophic, similar to the prior study from 01/10/2009. No focal pancreatic mass, ductal dilatation or evidence of pancreatitis seen. 3. Dense consolidation in left lower lobe, perhaps due to pneumonia or aspiration pneumonia. Clinical correlation requested. 4. Asymmetrically smaller right kidney with mild renal cortical thinning. 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 Close clinical correlation requested. 5 Tiny upper pole right renal low-attenuation mass is stable dating back to 2008, consistent with a benign cyst. 6. Markedly distended bladder. Consider Avila decompression if patient is unable to void. 2 right-sided bladder diverticula are also noted. 7. Mild coronary artery calcifications partially included.
[2018-01-06 15:18] VITALS: BP 112/66
--- NOTE | 2018-01-06 18:21 | Cons- Neurology ---
General Information and HPI Consulting Request Date of Consult: 01/06/18 Requested By: Reggie BREWER,Kory Escalante History of Present Illness: 72-year-old male noted by he has had change in status over approximately the past 10 days This was initiated by a persistent cough but no fever Patient then noted that he had a pain in his mouth states that he became increasingly weak Has had no recent falls but did have a series of falls in July He had to hold on when walking and has been walking with a walker He has had for a period of time difficulty following commands There has been no head trauma and no history of fever Complaint of generalized weakness but no focal weakness No history of change in vision or significant headaches Allergies/Medications Allergies: Coded Allergies: No Known Allergies (01/05/18) Home Med List: Aspirin (Ecotrin*) 81 MG TABLET.DR 1 TAB PO DAILY HEART/BLOOD (Reported) Atorvastatin Calcium 20 MG TABLET 1 TAB PO DAILY CHOLESTEROL (Reported) Bisoprolol Fumarate/Hctz (Bisoprolol-Hctz 5-6.25 MG Tab) 5 MG-6.25 MG TABLET 1 TAB PO DAILY BP (Reported) Fosinopril Sodium 20 MG TABLET 1 TAB PO DAILY BP (Reported) Current Medications: Current Medications Sig/Samir Start time Last Medication Dose Route Stop Time Status Admin Acetaminophen 650 MG Q6P PRN 01/055 AC PO Acetaminophen 1,000 MG Q6P PRN 01/05 2145 DC IV Aspirin Buffered 81 MG DAILY 01/06 0900 AC 01/06 PO 0851 Atorvastatin Calcium 80 MG DAILY 01/06 0900 AC 01/06 PO 0851 Azithromycin 500 MG DAILY 01/06 09 AC 01/06 Sodium Chloride 250 ML IV 0851 Ceftriaxone Sodium 1,000 MG DAILY 01/06 0900 AC 01/06 IV 0851 Clopidogrel Bisulfate 75 MG DAILY 01/06 1000 AC 01/06 PO 1342 Heparin Sodium 5,000 UNIT Q8 01/06 06 AC 01/06 (Porcine) SC 1342 Lactated Ringer's 1,000 ML ONCE ONE 01/06 1115 AC 01/06 IV 01/06 1914 1342 Lisinopril 20 MG DAILY 01/06 0900 AC 01/06 PO 0851 Lorazepam 2 MG ONCE ONE 01/06 1000 DC 01/06 IV 01/06 1001 1010 Review of Systems Review of Systems: Denies headache, diplopia, hearing change Persistent cough Denies chest pains, breathing difficulties, nausea vomiting No rash or swelling Walks with walker No fevers Other systems reviewed negative Past History Travel History Traveled to [place] past 21 day No Medical History Blood Transfusion Hx: No Neurological: NONE EENT: hearing loss Cardiovascular: hypertension, hyperlipidemia Respiratory: NONE Gastrointestinal: umbilical hernia Hepatic: NONE Renal: NONE Musculoskeletal: falls Psychiatric: NONE Endocrine: NONE Blood Disorders: NONE Cancer(s): NONE MANUFACTURING SPECIALIST/Reproductive: NONE Surgical History Surgical History: none Psychosocial History Where Do You Live? Home Who Do You Live With? spouse Services at Home: None Primary Language: Monegasque Smoking Status: Former Smoker ETOH Use: heavy use Illicit Drug Use: denies illicit drug use Living Will? no Power of Behavior Clinician/HCP? no Employment History Employment: Retired Exam & Diagnostic Data Vital Signs and I&O Vital Signs Date Time Temp Pulse Resp B/P B/P Pulse O2 O2 Flow FiO2 Mean Ox Delivery Rate 01/06 1518 98.4 63 18 112/66 92 01/06 1349 Room Air 01/06 0851 68 118/70 01/06 0800 Room Air 01/06 0650 97.9 01/06 0629 68 20 118/70 94 Room Air 01/05 2015 Room Air 01/05 1959 98.9 63 18 131/70 93 Room Air Intake & Output 01/06 1600 01/06 0800 01/06 0000 Intake Total 495 160 Output Total 125 300 150 Balance 370 -300 10 Intake, IV 375 Intake, Oral 120 160 Output, Urine 125 300 150 Patient 140 lb Weight Weight Reported by Patient Measurement Method sister diabetes Physical Exam: Alert Dysarthric Difficulty following commands Initially not oriented to month or date Extraocular movements full, pupils equal reactive, fundi benign, visual bhat intact, no facial weakness or facial sensory loss, lack of facial expression, tongue deviates to right with right-sided atrophy, palate and shoulders intact Normal tone upper and lower extremities Gross motor strength intact Deep tendon reflexes hypoactive Cortical functions upper extremities grossly intact Attempted gait not made due to absence of walker Last 48 Hours of Lab Results: Laboratory Tests 01/06 0745 Chemistry Sodium (137 - 145 mmol/L) 142 Potassium (3.5 - 5.1 mmol/L) 3.9 Chloride (98 - 107 mmol/L) 106 Carbon Dioxide (22 - 30 mmol/L) 25 Anion Gap (5 - 16) 11 BUN (9 - 20 mg/dL) 34 H Creatinine (0.7 - 1.2 mg/dL) 0.7 Estimated GFR (>60 ml/min) > 60 BUN/Creatinine Ratio (7 - 25 %) 48.6 H Hemoglobin A1c (4.2 - 5.8 %) 5.6 Total Bilirubin (0.2 - 1.3 mg/dL) 0.9 Direct Bilirubin (< 0.4 mg/dL) 0.6 H AST (17 - 59 U/L) 92 H ALT (21 - 72 U/L) 63 Alkaline Phosphatase (< 127 U/L) 113 Total Protein (6.3 - 8.2 g/dL) 5.5 L Albumin (3.5 - 5.0 g/dL) 2.6 L Triglycerides (<150 mg/dL) 61 Cholesterol (< 200 MG/DL) 72 LDL Cholesterol, Calc (65 - 129 mg/dL) 40 L HDL Cholesterol (40 - 60 mg/dL) 18 L Cholesterol/HDL Ratio (0.00 - 4.88 %) 4.0 TSH &T3 &Free T4 Intrp (0.27 - 4.20 uIU/mL) 0.362 Hematology CBC w Diff NO MAN DIFF REQ WBC (4.8 - 10.8 /CUMM) 14.2 H RBC (4.70 - 6.10 /CUMM) 5.28 Hgb (14.0 - 18.0 G/DL) 14.9 Hct (42 - 52 %) 44.7 MCV (80.0 - 94.0 FL) 84.8 MCH (27.0 - 31.0 PG) 28.2 MCHC (33.0 - 37.0 G/DL) 33.3 RDW (11.5 - 14.5 %) 14.1 Plt Count (130 - 400 /CUMM) 318 MPV (7.4 - 10.4 FL) 7.3 L Gran % (42.2 - 75.2 %) 91.5 H Lymphocytes % (20.5 - 51.1 %) 5.4 L Monocytes % (1.7 - 9.3 %) 3.1 Eosinophils % (0 - 5 %) 0 Basophils % (0.0 - 2.0 %) 0 Absolute Granulocytes (1.4 - 6.5 /CUMM) 13.0 H Absolute Lymphocytes (1.2 - 3.4 /CUMM) 0.8 L Absolute Monocytes (0.10 - 0.60 /CUMM) 0.4 Absolute Eosinophils (0.0 - 0.7 /CUMM) 0 Absolute Basophils (0.0 - 0.2 /CUMM) 0 Serology Hepatitis A IgM Ab (NONREACTIVE) NONREACTIVE Hep Bs Antigen (NONREACTIVE) NONREACTIVE Hep B Core IgM Ab Conf (NONREACTIVE) NONREACTIVE Hepatitis C Antibody (NONREACTIVE) NONREACTIVE 01/05 01/05 1746 1555 Chemistry Lactic Acid Cancelled Urines Urinalysis LIGHT H Urine Color (YEL,AMB,STR) YEL Urine Clarity (CLEAR) CLEAR Urine pH (5.0 - 8.0) 6.0 Ur Specific [place] (1.001 - 1.035) 1.020 Urine Protein (NEG,<30 MG/DL) 30 H Urine Ketones (NEG) TRACE H Urine Nitrite (NEG) POS H Urine Bilirubin (NEG) NEG Urine Urobilinogen (0.1 - 1.0 EU/dl) 4.0 H Ur Leukocyte Esterase (NEG) SMALL H Ur Microscopic SEDIMENT EXAMINED Urine RBC (0 - 5 /HPF) 1-3 Urine WBC (0 - 2 /HPF) 5-10 H Ur Epithelial Cells (NONE,FEW) RARE Urine Bacteria (NEG/NONE) FEW H Urine Hemoglobin (NEG) SMALL H Urine Glucose (N MG/DL) NEG 01/05 01/05 1256 1255 Chemistry Sodium (137 - 145 mmol/L) 139 Potassium (3.5 - 5.1 mmol/L) 4.0 Chloride (98 - 107 mmol/L) 100 Carbon Dioxide (22 - 30 mmol/L) 22 Anion Gap (5 - 16) 17 H BUN (9 - 20 mg/dL) 41 H Creatinine (0.7 - 1.2 mg/dL) 1.0 Estimated GFR (>60 ml/min) > 60 BUN/Creatinine Ratio (7 - 25 %) 41.0 H Glucose (65 - 99 mg/dL) 167 H Lactic Acid (0.7 - 2.1 mmol/L) 2.1 Calcium (8.4 - 10.2 mg/dL) 9.0 Total Bilirubin (0.2 - 1.3 mg/dL) 2.2 H Direct Bilirubin (< 0.4 mg/dL) 1.3 H AST (17 - 59 U/L) 93 H ALT (21 - 72 U/L) 64 Alkaline Phosphatase (< 127 U/L) 143 H Troponin I (<0.11 ng/ml) 0.02 Total Protein (6.3 - 8.2 g/dL) 6.4 Albumin (3.5 - 5.0 g/dL) 3.2 L Globulin (1.9 - 4.2 gm/dL) 3.2 Albumin/Globulin Ratio (1.1 - 2.2 %) 1.0 L Amylase (30 - 110 U/L) 61 Lipase (23 - 300 U/L) 212 Coagulation PT (9.4 - 12.5 SEC) 15.5 H INR (0.90 - 1.17) 1.42 H APTT (25 - 37 SEC) 32 D-Dimer High Sensitivty (0 - 243 ng/ml) 651 H Hematology CBC w Diff MAN DIFF ORDERED WBC (4.8 - 10.8 /CUMM) 16.8 H RBC (4.70 - 6.10 /CUMM) 5.64 Hgb (14.0 - 18.0 G/DL) 15.9 Hct (42 - 52 %) 48.2 MCV (80.0 - 94.0 FL) 85.5 MCH (27.0 - 31.0 PG) 28.1 MCHC (33.0 - 37.0 G/DL) 32.9 L RDW (11.5 - 14.5 %) 14.3 Plt Count (130 - 400 /CUMM) 320 MPV (7.4 - 10.4 FL) 7.3 L Gran % (42.2 - 75.2 %) 86.5 H Lymphocytes % (20.5 - 51.1 %) 3.1 L Monocytes % (1.7 - 9.3 %) 8.9 Eosinophils % (0 - 5 %) 0 Basophils % (0.0 - 2.0 %) 1.5 Absolute Granulocytes (1.4 - 6.5 /CUMM) 14.5 H Absolute Lymphocytes (1.2 - 3.4 /CUMM) 0.5 L Absolute Monocytes (0.10 - 0.60 /CUMM) 1.5 H Absolute Eosinophils (0.0 - 0.7 /CUMM) 0 Absolute Basophils (0.0 - 0.2 /CUMM) 0.3 Platelet Estimate (ADEQUATE) VERIFIED BY SMEAR Poikilocytosis 1+ [place] Cells 1+ Imaging/Other Studies: MRI brain IMPRESSION: 1. There are no acute bleeds or infarcts. No masses are demonstrated. 2. There is diffuse volume loss and there are chronic microvascular ischemic disease and lacunar infarcts. Assessment/Plan Assessment: Complex of dysarthria, unilateral tongue atrophy, gait difficulty, hyperreflexia , cognitive loss Probable multi-infarct disease Rule out other causes Recommendations: Obtain B12 level Sedimentation rate Physical therapy for gait assessment Speech therapy for possible aspiration Consult Acknowledgment - Thank you for your consult request.
[2018-01-06 21:38] VITALS: BP 122/80
--- NOTE | 2018-01-07 00:22 | Event Note ---
Event Note Event Note: S: Oj Thapa is a 72 yo male who presently is confused. Patient recently woke up and requested to speak to his . Patient states he is at the "[facility]." Patient is re-evaluated after a few minutes. Patient is found to be AAOx3. Patient is without any specific complaints. B: PMHx HTN and HLD; Patient presented to with c/o productive cough and weakness on 01/05/18 A: AAOx3 Patient initially has trouble following eye commands. Rightward tongue deviation on neuro exam. 5/5 strength UE, 4/5 strength LE All other systems normal. Neuro exam similar to previous from yesterday. R: Reassess patient for any subsequent neurological deficits. Spoke with senior resident and notified attending. Given Melatonin 5 mg for sleep.
[2018-01-07 06:48] VITALS: BP 98/62
--- NOTE | 2018-01-07 07:22 | PN- Housestaff ---
Gray Lai 01/07/18 0722: Subjective Follow-up For: Pneumonia Stroke Abnormal LFTs Positive urine cultures Complaints: no complaints Tele-Events Since Last Visit: Normal sinus rhythm no acute events Subjective: Patient was seen and examined this morning. He is alert awake and alert and oriented to time place and person. Overnight according to the nurses report he was confused, speech was garbled. NIH stroke scale was 2. He received some melatonin after which he went to bed. He is back to normal this morning except for speech abnormality No new focal neurologic deficits, tingling numbness, gait changes, vision changes. Continues to have difficulty with speech. Review of Systems Constitutional: Reports: see HPI. Objective Last 24 Hrs of Vital Signs/I&O Vital Signs Date Time Temp Pulse Resp B/P B/P Pulse O2 O2 Flow FiO2 Mean Ox Delivery Rate 01/07 0818 60 98/60 01/07 0648 97.7 66 18 98/62 93 Room Air 01/06 2138 97.3 64 18 122/80 93 01/06 1518 98.4 63 18 112/66 92 01/06 1349 Room Air Intake & Output 01/07 1600 01/07 0800 01/07 0000 Intake Total 120 450 Output Total Balance 120 450 Intake, IV 250 Intake, Oral 120 200 Physical Exam General Appearance: Alert, Oriented X3 Other Physical Findings: HEENT: Normocephalic, atraumatic, EOMI, slightly dry mucous membranes. Neck: No JVD, no bruits. Lungs: Decreased breath sounds bilaterally. Heart: S1, S2 no murmur, gallop, or rub. PMI not well felt. Abdomen: Soft, nontender, positive bowel sounds. Extremities: No edema. Normal tone upper and lower extremities Gross motor strength intact Deep tendon reflexes hypoactive visual bhat intact, no facial weakness or facial sensory loss, lack of facial expression, tongue deviates to right with right-sided atrophy, palate and shoulders intact Current Medications: Current Medications Sig/Samir Start time Last Medication Dose Route Stop Time Status Admin Acetaminophen 650 MG Q6P PRN 01/05 2145 AC PO Aspirin Buffered 81 MG DAILY 01/06 900 AC 01/07 PO 0818 Atorvastatin Calcium 20 MG 1700 01/07 1700 AC PO Atorvastatin Calcium 80 MG DAILY 01/06 09 DC 01/07 PO 08 Azithromycin 500 MG DAILY 01/06 900 AC 01/07 Sodium Chloride 250 ML IV 0818 Ceftriaxone Sodium 1,000 MG DAILY 01/06 0900 AC 01/07 IV 0818 Clopidogrel Bisulfate 75 MG DAILY 01/06 1000 AC 01/07 PO 0818 Heparin Sodium 5,000 UNIT Q8 01/06 0600 AC 01/07 (Porcine) SC 0611 Lactated Ringer's 1,000 ML ONCE ONE 01/06 1115 DC 01/06 IV 01/06 1914 1342 Lisinopril 20 MG DAILY 01/06 09 AC 01/06 PO 0851 Melatonin 5 MG ONCE ONE 01/07 0030 DC 01/07 PO 01/07 0031 0022 Last 24 Hrs of Lab/David Results Last 24 Hrs of Labs/Mics: Laboratory Tests 01/07/18 0610: Anion Gap 11, Estimated GFR > 60, BUN/Creatinine Ratio 47.1 H, CBC w Diff Pending, WBC Pending, RBC Pending, Hgb Pending, Hct Pending, MCV Pending, MCH Pending, MCHC Pending, RDW Pending, Plt Count Pending, MPV Pending, ESR Westergren 47 H Assessment/Plan Assessment: Patient is a 72-year-old male past medical history significant for hypertension, hyperlipidemia, past smoker for 40+ years (2ppd). He presented to the hospital with c/o cough produtive of phelgm, and weakness in his legs. His other symptom is of sudden weakness when he wanted to get up from a reclining chair, but was unable to do so due to sudden bilateral lower extremity weakness on Saturday (12/31/17). He also had slurring of speech, and tongue deviated to the right upon protrusion, word salad, which since then has gradually improved but the patient still has lower extremity weakness which is better, slurring of speech, tongue deviation, but as well oriented, comprehends well, and responds appropriately. He does not have history of any head trauma, fall, bowel/bladder incontinence, changes in sensation, blurring of vision, double vision, facial deviation. Patient was initially admitted to [facility] on 01/05/2018 and later transferred to telemetry on 01/06/2018 for further stroke workup. #Community-acquired pneumonia Patient presented with worsening productive cough with chest x-ray findings suggestive of pneumonia. He was admitted initially to general medicine for management of community-acquired pneumonia. Given his stroke like symptoms which has been ongoing for last 1 week there is possibility of aspiration leading to pneumonia. * Monitor vitals every shift * Maintain saturation above 90 * Continue IV ceftriaxone and azithromycin day 3 * Follow-up blood cultures, sputum cultures neg so far * Monitor for fever, leukocytosis. Possible subacute stroke Patient's clinical feature of sudden onset bilateral leg weakness, slurring of speech, tongue deviation, lasting more than 24 hours, which is now gradually resolving, still with weakness and slurring of speech, tongue deviation is suggestive of stroke, likely resolving. His CAT scan is negative for any bleed, and when compared with previous MRI shows some lacunar infarcts, but no gross area of acute ischemia. * neurology consultation * frequent neurochecks * MRI head was done which showed no acute bleed or infarcts * plavix 75 * aspirin 81 * Lipitor 80 * Echocardiogram pending * Cardiology was consulted * Passed bedside swallow/formal swallow * PT OT * Speech therapy Gallbladder wall thickening Patient has abnormal liver function test in the context of gallbladder wall thickening with a negative Cornelius sign. He does have icterus, and has history of chronic alcoholism, which makes alcoholic hepatitis likely. However, other causes of abnormal liver function test like viral hepatitis needs to be ruled out. Atypical pneumonia can sometimes cause abnormal liver function test, which typically resolves after the primary infection is treated. * Follow-up hepatitis panel neg * Repeat LFTs in a.m. * Alcohol cessation counseling * CAT scan abdomen showed mild gallbladder wall thickening and enhancement of gallbladder with tiny calcified gallstones. * ultrasound abdomen wnl Abnormal urine analysis Urine analysis positive for nitrite, esterase, WBCs and bacteria. He is asymptomatic denied any frequency urgency dysuria fever, chills. However he has leukocyte count elevation. * Urine cultures growing gram-positive cocci * Will follow up final urine cultures and sensitivities * Adjust antibiotics accordingly thyroid gland density The thyroid gland has heterogenous density with a 5 mm area of low density. In view of the patient's age and sex a nonemergent thyroid ultrasound is suggested for further assessment. * will get op thyroid ultrasound Hypertension Will continue his home dose of antiHTN meds LISINOPRIL but holding Bisoprolol/HCTZ #Diet: REGULAR DIET #DVT ppx: SQ Heparin #Code status: Full code Problem List: 1. Pneumonia 2. Stroke Pain Ratin Pain Location: n/a Pain Goal: Remain pain free Pain Plan: tylenol Tomorrow's Labs & Rationales: cbc bep lft Kory Paredes 01/07/18 1316: Attending MD Review Statement Attending Statement Attending MD Statement: examined this patient, discuss w/resident/PA/PASTRY SUPERVISOR, agreed w/resident/PA/PASTRY SUPERVISOR, reviewed EMR data (avail), discussed with nursing, discussed with case mgmt Attending Assessment/Plan: Multi infarct Stroke on imaging with speech slurring and tongue deviation. neuro consult appreciated. cont on asa and plavix for 4 weeks , then will dc the asa. will cont on lipitor 20mg qhs. will f/u on echo results. Elevated LFts- abdominal ultrasoun showing no acute cholecysitis. Urine cultures growing gram positive cocci- will f/u on final results. Plan will be to dc him to home with home PT and speech therapy.
--- NOTE | 2018-01-07 12:08 | PN- Cardiology ---
Subjective Subjective: Earlier confused (see event note), presently alert and oriented. Maintaining sinus rhythm on telemetry. No evidence of atrial fibrillation. Objective Vital Signs and I&Os Vital Signs Date Time Temp Pulse Resp B/P B/P Pulse O2 O2 Flow FiO2 Mean Ox Delivery Rate 01/07 0818 60 98/60 01/07 0648 97.7 66 18 98/62 93 Room Air 01/06 2138 97.3 64 18 122/80 93 01/06 1518 98.4 63 18 112/66 92 01/06 1349 Room Air Intake & Output 01/07 1600 01/07 0800 01/07 0000 01/06 1600 01/06 0800 01/06 0000 Intake Total 120 450 495 160 Output Total 125 300 150 Balance 120 450 370 -300 10 Intake, IV 250 375 Intake, Oral 120 200 120 160 Output, Urine 125 300 150 Patient 140 lb Weight Weight Reported by Patient Measurement Method Physical Exam: Well-developed, thin elderly male in no acute distress. Vital signs: See above. HEENT: Normocephalic, atraumatic, EOMI, slightly dry mucous membranes. Neck: No JVD, no bruits. Lungs: Decreased breath sounds bilaterally. Heart: S1, S2 no murmur, gallop, or rub. PMI not well felt. Abdomen: Soft, nontender, positive bowel sounds. Extremities: No edema. Current Medications: Current Medications Sig/Samir Start time Last Medication Dose Route Stop Time Status Admin Acetaminophen 650 MG Q6P PRN 01/05 2145 AC PO Aspirin Buffered 81 MG DAILY 01/06 09 AC 01/07 PO 0818 Atorvastatin Calcium 20 MG 1700 01/07 1700 AC PO Atorvastatin Calcium 80 MG DAILY 01/06 09 DC 01/07 PO 0818 Azithromycin 500 MG DAILY 01/06 09 AC 01/07 Sodium Chloride 250 ML IV 18 Ceftriaxone Sodium 1,000 MG DAILY 01/06 09 AC 01/07 IV 0818 Clopidogrel Bisulfate 75 MG DAILY 01/06 1000 AC 01/07 PO 0818 Heparin Sodium 5,000 UNIT Q8 01/06 06 AC 01/07 (Porcine) SC 0611 Lactated Ringer's 1,000 ML ONCE ONE 01/06 1115 DC 01/06 IV 01/06 1914 1342 Lisinopril 20 MG DAILY 01/06 09 AC 01/06 PO 0851 Melatonin 5 MG ONCE ONE 01/07 0030 DC 01/07 PO 01/07 0031 0022 Results Last 48 Hrs of Labs/Mics: Laboratory Tests 01/07/18 0610: Anion Gap 11, Estimated GFR > 60, BUN/Creatinine Ratio 47.1 H, CBC w Diff Pending, WBC Pending, RBC Pending, Hgb Pending, Hct Pending, MCV Pending, MCH Pending, MCHC Pending, RDW Pending, Plt Count Pending, MPV Pending, ESR Westergren 47 H 01/06/18 0745: Anion Gap 11, Estimated GFR > 60, BUN/Creatinine Ratio 48.6 H, Hemoglobin A1c 5.6, Total Bilirubin 0.9, Direct Bilirubin 0.6 H, AST 92 H, ALT 63, Alkaline Phosphatase 113, Total Protein 5.5 L, Albumin 2.6 L, Triglycerides 61, Cholesterol 72, LDL Cholesterol, Calc 40 L, HDL Cholesterol 18 L, Cholesterol/ HDL Ratio 4.0, Vitamin B12 834, Folate 7.8, TSH &T3 &Free T4 Intrp 0.362, CBC w Diff NO MAN DIFF REQ, RBC 5.28, MCV 84.8, MCH 28.2, MCHC 33.3, RDW 14.1, MPV 7.3 L, Gran % 91.5 H, Lymphocytes % 5.4 L, Monocytes % 3.1, Eosinophils % 0, Basophils % 0, Absolute Granulocytes 13.0 H, Absolute Lymphocytes 0.8 L, Absolute Monocytes 0.4, Absolute Eosinophils 0, Absolute Basophils 0, Hepatitis A IgM Ab NONREACTIVE, Hep Bs Antigen NONREACTIVE, Hep B Core IgM Ab Conf NONREACTIVE, Hepatitis C Antibody NONREACTIVE 01/05/18 1746: Urinalysis LIGHT H, Urine Color YEL, Urine Clarity CLEAR, Urine pH 6.0, Ur Specific [place] 1.020, Urine Protein 30 H, Urine Ketones TRACE H, Urine Nitrite POS H, Urine Bilirubin NEG, Urine Urobilinogen 4.0 H, Ur Leukocyte Esterase SMALL H, Ur Microscopic SEDIMENT EXAMINED, Urine RBC 1-3, Urine WBC 5- 10 H, Ur Epithelial Cells RARE, Urine Bacteria FEW H, Urine Hemoglobin SMALL H, Urine Glucose NEG 01/05/18 1555: Lactic Acid Cancelled 01/05/18 1256: Anion Gap 17 H, Estimated GFR > 60, BUN/Creatinine Ratio 41.0 H, Glucose 167 H, Lactic Acid 2.1, Calcium 9.0, Total Bilirubin 2.2 H, Direct Bilirubin 1.3 H , AST 93 H, ALT 64, Alkaline Phosphatase 143 H, Troponin I 0.02, Total Protein 6.4, Albumin 3.2 L, Globulin 3.2, Albumin/Globulin Ratio 1.0 L, Amylase 61, Lipase 212, CBC w Diff MAN DIFF ORDERED, RBC 5.64, MCV 85.5, MCH 28.1, MCHC 32.9 L, RDW 14.3, MPV 7.3 L, Gran % 86.5 H, Lymphocytes % 3.1 L, Monocytes % 8.9, Eosinophils % 0, Basophils % 1.5, Absolute Granulocytes 14.5 H, Absolute Lymphocytes 0.5 L, Absolute Monocytes 1.5 H, Absolute Eosinophils 0, Absolute Basophils 0.3, Platelet Estimate VERIFIED BY SMEAR, Poikilocytosis 1+, Hiram Cells 1+ 01/05/18 1255: PT 15.5 H, INR 1.42 H, APTT 32, D-Dimer High Sensitivty 651 H Microbiology 01/05 174 URINE ROUT: Legionella Antigen - COMP 01/05 1746 URINE ROUT: Streptococcus pneumoniae Antigen (M - COMP Recent Imaging Studies: CT abdomen/pelvis 01/06/2018: 1. Abnormal appearance of the gallbladder with wall thickening and enhancement and a stable small layering calcified gallstone seen. Findings are suspicious for acute cholecystitis. Close clinical correlation requested. No evidence of common bile duct obstruction or choledocholithiasis. 2. The pancreas is diffusely atrophic, similar to the prior study from 2008. No focal pancreatic mass, ductal dilatation or evidence of pancreatitis seen. 3. Dense consolidation in left lower lobe, perhaps due to pneumonia or aspiration pneumonia. Clinical correlation requested. 4. Asymmetrically smaller right kidney with mild renal cortical thinning. 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 Close clinical correlation requested. 5. Tiny upper pole right renal low-attenuation mass is stable dating back to 2008, consistent with a benign cyst. 6. Markedly distended bladder. Consider Avila decompression if patient is unable to void. 2 right-sided bladder diverticula are also noted. 7. Mild coronary artery calcifications partially included. Head/neck CTA 01/06/2018: 1. There are no acute bleeds or territorial infarcts. There are no masses or areas of abnormal enhancement. 2. There is mild diffuse volume loss. There are chronic microvascular ischemic changes and lacunar infarcts. 3. There are degenerative changes of the temporomandibular joints. There is an expansile cyst in the anterior left mandible. 4. There are mild atheromatous calcifications in the arch, carotid bifurcations and left vertebral artery. There are no focal stenoses, aneurysms or vascular malformations in the head or neck vascular structures. 5. The thyroid gland has heterogenous density with a 5 mm area of low density. In view of the patient's age and sex a nonemergent thyroid ultrasound is suggested for further assessment. ECG 01/06/2018: Sinus rhythm probable left atrial abnormality, possible old anteroseptal wall myocardial infarction versus lead placement. Assessment/Plan Assessment/Plan [id number] w/ hx fmr heavy tob use (2 ppd 40+ yrs), HTN, HLD, stroke (lacunar by head CT) who presented to the ED on 01/05/2018 with a 1-1/2 wk of prod cough, congestion, decreased by mouth intake, w/o SOB, LE edema, CP, palps, fever, chills, sick contacts, etc. Additionally, he has been expeiencing generalized weakness since Saturday, 2017 w/ difficulty arising from his recliner. After awakening on 12/31/2017 he "felt funny", had difficulty w/ his memory, speech, swallowing, and gait w/ the suspicion that he is having a neurological events. Neurology evaluated Mr. Thapa yesterday, 01/06/2018 and felt that his presentation was consistent with probable multi-infarct disease with other etiologies warranting exclusion. Recommendation: * Continue on telemetry to exclude PAF. * Follow-up echocardiogram to help exclude a cardioembolic source for his symptoms. * Exclude carotid artery disease. * Enhance antiplatelet regimen, if no contraindication. * High dose statin therapy. * Thyroid ultrasound as per radiology. Continue telemetry? Yes
--- NOTE | 2018-01-07 12:17 | ULTRASOUND REPORT ---
EXAMINATION: US ABDOMEN LIMITED CLINICAL INFORMATION: Abnormal LFTs. COMPARISON: CT 01/06/2018 TECHNIQUE: Real-time imaging of the right upper quadrant abdominal viscera. FINDINGS: PANCREAS: The proximal portion of the pancreas is unremarkable. The tail was not well visualized. LIVER: The liver demonstrates normal size, contour and echogenicity. No focal lesion or intrahepatic biliary duct dilatation. GALLBLADDER: The patient did not report tenderness to transducer palpation over the gallbladder. Echogenic bile and layering calculi are seen, similar to the prior CT. The gallbladder is physiologically distended. Multiple mobile gallstones and sludge are present. No evidence of gallbladder wall thickening or pericholecystic fluid. COMMON BILE DUCT: Normal in caliber measuring 0.5 cm in diameter. RIGHT KIDNEY: No minimal hydronephrosis, similar to the prior CT with appearance suggestive of UPJ stricture physiology. No renal calculi or focal parenchymal lesions. The kidney measures 9.3 cm in maximum dimension. FREE FLUID: None. IMPRESSION: 1. Although there are gallstones and echogenic bile present within the gallbladder, the patient did not report a sonographic Cornelius sign. Furthermore, the gallbladder wall is of normal thickness. These findings are not supportive of acute cholecystitis. Clinical correlation requested. 2. Minimal right hydronephrosis, similar to the prior CT which suggested UPJ stricture physiology.
[2018-01-07] MEDS ORDERED: PLAVIX75 M1 PO (13:35)
--- NOTE | 2018-01-07 13:37 | Patient Discharge Instructions ---
Discharge Instructions General Discharge Information You were seen/treated for: Pneumonia Stroke Abnormal LFTs Positive urine cultures Special Instructions: Follow-up PCP in 1 week after discharge Follow-up with global ceo in 1 week after discharge Follow-up with the neurologist in 1 week after discharge take aspirin and plavix for 4weeks Then stop aspirin and continue plavix for stroke prevention . Needs outpatient thyroid ultrasound. Neck CTA showed heterogenous density of thyroid gland Has to follow-up with global ceo for loop recorder monitoring Diet Continue normal diet: Yes Activity Full Activity/No Limits: Yes Acute Coronary Syndrome Inclusion Criteria At DC or during hospital stay patient has or had the following: ACS DIAGNOSIS No Discharge Core Measures Meds if any: Prescribed or Continued at Discharge Meds if any: NOT Prescribed or Continued at Discharge Congestive Heart Failure Inclusion Criteria At DC or during hospital stay patient has or had the following: CHF DIAGNOSIS No Discharge Core Measures Meds if any: Prescribed or Continued at Discharge Meds if any: NOT Prescribed or Continued at Discharge Cerebrovascular accident Inclusion Criteria At DC or during hospital stay patient has or had the following: CVA/TIA Diagnosis Yes Discharge Core Measures Meds if any: Prescribed or Continued at Discharge Meds if any: NOT Prescribed or Continued at Discharge Venous thromboembolism Inclusion Criteria VTE Diagnosis No VTE Type NONE VTE Confirmed by (Test) NONE Discharge Core Measures - Per Current guidelines, there needs to be overlap - treatment for the first 5 days of Warfarin therapy. - If discharged on Warfarin prior to 5 days of - overlap therapy, the patient will need to be - assessed for post discharge needs including - *Post discharge parental anticoagulation - *Warfarin and/or parental anticoagulation education - *Follow up date to check INR post discharge At least 5 days overlap therapy as Inpatient No Meds if any: Prescribed or Continued at Discharge Note: Overlap Therapy is Warfarin and Anticoagulant Meds if any: NOT Prescribed or Continued at Discharge
--- NOTE | 2018-01-07 13:45 | ECHOCARDIOGRAM REPORT ---
URSULA XIONG Age: 72 : 1945 Gender: M Exam Date: 01/06/2018 12:21 Exam Location: [facility] Ht (in): 69 Wt (lb): 140 BSA: 1.75 BP: 118 / 70 Ordering Physician: MILLIE ROCHA MD Referring Physician: MILLIE ROCHA MD Technologist: Jenaro Mullins [facility] Room Number: 179-2 Indications: STROKE Rhythm: Sinus Technical Quality: Poor, Technically difficult study FINDINGS Left Ventricle Normal size left ventricle. Normal left ventricular wall thickness. No obvious regional wall motion abnormalities. Normal left ventricular ejection fraction visually estimated at 60%. Abnormal relaxation filling pattern of the left ventricle for age (stage 1 diastolic dysfunction). Right Ventricle Normal right ventricular size and function. Right Atrium Normal right atrial size. Left Atrium Normal left atrial size. Mitral Valve Mitral valve mildly thickened. No mitral regurgitation. Aortic Valve Aortic valve not well visualized. No aortic valve stenosis or regurgitation. Tricuspid Valve Structurally normal tricuspid valve. Trace tricuspid regurgitation. No evidence of pulmonary hypertension. Right ventricular systolic pressure estimated to be within the normal range at 28 mmHg. Pulmonic Valve Pulmonic valve not well visualized. No pulmonic regurgitation. Pericardium No pericardial effusion. Great Vessels Normal size aortic root. CONCLUSIONS Normal size left ventricle. Normal left ventricular wall thickness. Normal left ventricular ejection fraction visually estimated at 60%. Abnormal relaxation filling pattern of the left ventricle for age (stage 1 diastolic dysfunction). Normal right ventricular size and function. Normal atrial size. Trace tricuspid regurgitation. No evidence of pulmonary hypertension. Walt Mclain M.D. (Electronically Signed) Final Date: 07 January 2018 13:41 MEASUREMENTS (Male / Female) Normal Values 2D ECHO LV Diastolic Diameter PLAX 4.6 cm 4.2 - 5.9 / 3.9 - 5.3 cm LV Systolic Diameter PLAX 3.1 cm 2.1 - 4.0 cm LV Fractional Shortening PLAX 32.6 % 25 - 46 % LV Ejection Fraction 2D Teich 61.0 % IVS Diastolic Thickness 0.6 cm LVPW Diastolic Thickness 0.7 cm LV Relative Wall Thickness 0.3 RV Internal Dim ED PLAX 2.6 cm 1.9 - 3.8 cm LVOT Diameter 1.8 cm Aortic Root Diameter 2.4 cm LA Systolic Diameter LX 2.3 cm 3.0 - 4.0 / 2.7 - 3.8 cm DOPPLER AV Peak Velocity 91.0 cm/s AV Peak Gradient 3.3 mmHg AV Mean Velocity 54.8 cm/s AV Mean Gradient 1.0 mmHg AV Velocity Time Integral 16.9 cm LVOT Peak Velocity 73.7 cm/s LVOT Peak Gradient 2.2 mmHg LVOT Mean Velocity 39.5 cm/s LVOT Mean Gradient 1.0 mmHg LVOT Velocity Time Integral 19.4 cm LVOT Stroke Volume 49.4 cm AV Area Cont Eq vti 2.9 cm AV Area Cont Eq pk 2.1 cm MV Peak Velocity 89.6 cm/s MV Peak Gradient 3.2 mmHg MV Mean Velocity 48.8 cm/s MV Mean Gradient 1.0 mmHg Mitral E Point Velocity 71.6 cm/s Mitral A Point Velocity 80.9 cm/s Mitral E to A Ratio 0.9 MV PHT Velocity 78.7 cm/s MV Deceleration Hoke 201.0 cm/s MV Pressure Half Time 117.5 ms MV Area PHT 1.9 cm MV Deceleration Time 317.0 ms TR Peak Velocity 242.0 cm/s TR Peak Gradient 23.4 mmHg Right Atrial Pressure 5.0 mmHg Pulmonary Artery Systolic Pressure 28.4 mmHg Right Ventricular Systolic Pressure 28.4 mmHg LV E' Lateral Velocity 6.9 cm/s Mitral E to LV E' Lateral Ratio 10.3 LV E' Septal Velocity 9.9 cm/s Mitral E to LV E' Septal Ratio 7.2
--- NOTE | 2018-01-07 13:55 | Discharge Summary ---
Visit Information Visit Dates Admission Date: 01/05/18 Discharge Date: 01/10/2018 Hospital Course Course Attending Physician: Reggie BREWER,Kory Escalante Primary Care Physician: Madi Flores DO Hospital Course: Patient is a 72-year-old male past medical history significant for hypertension, hyperlipidemia, past smoker for 40+ years (2ppd). He presented to the hospital with c/o cough produtive of phelgm, and weakness in his legs. His other symptom is of sudden weakness when he wanted to get up from a reclining chair, but was unable to do so due to sudden bilateral lower extremity weakness on Saturday (12/31/17). He also had slurring of speech, and tongue deviated to the right upon protrusion, word salad, which since then has gradually improved but the patient still has lower extremity weakness which is better, slurring of speech, tongue deviation, but as well oriented, comprehends well, and responds appropriately. He does not have history of any head trauma, fall, bowel/bladder incontinence, changes in sensation, blurring of vision, double vision, facial deviation. Patient was initially admitted to [facility] on 01/05/2018 and later transferred to telemetry on 01/06/2018 for further stroke workup. #Community-acquired pneumonia Patient presented with worsening productive cough with chest x-ray findings suggestive of pneumonia. He was admitted initially to general medicine for management of community-acquired pneumonia. Later he was transferred to telemetry for stroke workup. He was given IV ceftriaxone and azithromycin in the hospital for 5days. He remained afebrile with no leukocytosis. Follow blood cultures and sputum cultures were negative. Possible subacute stroke Patient's clinical feature of sudden onset bilateral leg weakness, slurring of speech, tongue deviation, lasting more than 24 hours, which is now gradually resolving, still with weakness and slurring of speech, tongue deviation is suggestive of stroke, likely resolving. His CAT scan is negative for any bleed, and when compared with previous MRI shows some lacunar infarcts, but no gross area of acute ischemia. MRI head was done which showed no acute bleed or infarcts. He was continued on home medication aspirin 81 daily and Lipitor 20 daily. However he was started on Plavix 75 daily. Neurologist on board. PT, OT speech and swallow therapy evaluation was done while he was in the hospital. PT recommended acute rehab. He was advised to take aspirin 81 and Plavix 75 for next 4 weeks. And then he should stop aspirin and continue Plavix for secondary stroke prevention. School Speech Language Pathologist on board, echocardiogram was done which showed stage I diastolic dysfunction Gallbladder wall thickening Patient has abnormal liver function test in the context of gallbladder wall thickening with a negative Cornelius sign. Ultrasound abdomen was done which showed gallbladder wall within normal thickness. No findings suggestive of acute cholecystitiS. CAT scan abdomen showed mild gallbladder wall thickening and enhancement of gallbladder with tiny calcified gallstones. Abnormal urine analysis Urine analysis positive for nitrite, esterase, WBCs and bacteria. He is asymptomatic denied any frequency urgency dysuria fever, chills. Urine cultures growing multiple colony types consistent with contamination. thyroid gland density The thyroid gland has heterogenous density with a 5 mm area of low density. In view of the patient's age and sex a nonemergent thyroid ultrasound is suggested for further assessment. Patient will get outpatient thyroid ultrasound Hypertension continued his home dose of antiHTN meds LISINOPRIL. Continue bisoprolol and hydrochlorothiazide at the time of discharge. #Diet: REGULAR DIET #DVT ppx: SQ Heparin #Code status: Full code Allergies: Coded Allergies: No Known Allergies (01/05/18) Pertinent Lab Results: cxr IMPRESSION: A patchy infiltrate is seen in the posterior lower thorax, likely within the left lung. The appearance is suspicious for acute pneumonia. Recommend radiographic follow-up to clearance. head ct FINDINGS: There is no evidence of acute intracranial hemorrhage or territorial infarction. No abnormal mass effect or midline shift is seen. Mcdonald to white matter differentiation is well preserved. No extra-axial fluid collections are identified. The ventricles are normal in size. There is mild to moderate low-attenuation within the periventricular white matter including a tiny hypodensity posterior to the left posterior horn of lateral ventricle, unchanged compared to the previous MRI from 2017. Lacunar infarct within the left basal ganglia region is likewise stable. The osseous structures and soft tissues are normal. The mastoid air cells and visualized portions of the paranasal sinuses are well aerated. IMPRESSION: No acute intracranial findings. No significant interval change compared to the MRI of 02/12/2017. CTA CHEST 1. No acute pulmonary embolism. 2. Dense consolidation involving the majority of the left lower lobe suspicious for pneumonia. Recommend repeat CT in 4-6 weeks to confirm resolution of these findings. 3. Prominent left hilar lymph node, most likely reactive. 4. Gallbladder wall edema, partially imaged. Recommend correlation for right upper quadrant symptoms. It is difficult to completely exclude acute cholecystitis. VTE: negative CT ABD/PELVIS 1. Abnormal appearance of the gallbladder with wall thickening and enhancement and a stable small layering calcified gallstone seen. Findings are suspicious for acute cholecystitis. Close clinical correlation requested. No evidence of common bile duct obstruction or choledocholithiasis. 2. The pancreas is diffusely atrophic, similar to the prior study from 01/10/2009. No focal pancreatic mass, ductal dilatation or evidence of pancreatitis seen. 3. Dense consolidation in left lower lobe, perhaps due to pneumonia or aspiration pneumonia. Clinical correlation requested. 4. Asymmetrically smaller right kidney with mild renal cortical thinning. 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 Close clinical correlation requested. 5 Tiny upper pole right renal low-attenuation mass is stable dating back to 2008, consistent with a benign cyst. 6. Markedly distended bladder. Consider Avila decompression if patient is unable to void. 2 right-sided bladder diverticula are also noted. 7. Mild coronary artery calcifications partially included. HEAD/NECK CTA 1. There are no acute bleeds or territorial infarcts. There are no masses or areas of abnormal enhancement. 2. There is mild diffuse volume loss. There are chronic microvascular ischemic changes and lacunar infarcts. 3. There are degenerative changes of the temporomandibular joints. There is an expansile cyst in the anterior left mandible. 4. There are mild atheromatous calcifications in the arch, carotid bifurcations and left vertebral artery. There are no focal stenoses, aneurysms or vascular malformations in the head or neck vascular structures. 5. The thyroid gland has heterogenous density with a 5 mm area of low density. In view of the patient's age and sex a nonemergent thyroid ultrasound is suggested for further assessment. MRI HEAD 1. There are no acute bleeds or infarcts. No masses are demonstrated. 2. There is diffuse volume loss and there are chronic microvascular ischemic disease and lacunar infarcts. US ABD 1. Although there are gallstones and echogenic bile present within the gallbladder, the patient did not report a sonographic Cornelius sign. Furthermore, the gallbladder wall is of normal thickness. These findings are not supportive of acute cholecystitis. Clinical correlation requested. 2. Minimal right hydronephrosis, similar to the prior CT which suggested UPJ stricture physiology. Disposition Summary Disposition Principal Diagnosis: Pneumonia Stroke Abnormal LFTs Additional Diagnosis: Heterogeneous density of the thyroid gland Discharge Disposition: other general hospital Discharge Instructions General Discharge Information Code Status: Full Code Patient's Diet: As tolerated Patient's Activity: As tolerated Follow-Up Instructions/Appts: Follow-up with PCP in 1 week after discharge Follow-up with pecan cleaner in 1 week after discharge Follow-up with the neurologist in 1 week after discharge take aspirin and plavix for 4weeks Then stop aspirin and continue plavix for stroke prevention . Needs outpatient thyroid ultrasound. Neck CTA showed heterogenous density of thyroid gland Has to follow-up with pecan cleaner for loop recorder monitoring Medications at Discharge Discharge Medications: Continue taking these medications: Atorvastatin Calcium (Atorvastatin Calcium) 20 MG TABLET 1 Tablet ORAL DAILY Qty = 90 Bisoprolol Fumarate/Hctz (Bisoprolol-Hctz 5-6.25 MG Tab) 5 MG-6.25 MG TABLET 1 Tablet ORAL DAILY Qty = 90 Fosinopril Sodium (Fosinopril Sodium) 20 MG TABLET 1 Tablet ORAL DAILY Qty = 90 Aspirin (Ecotrin*) 81 MG TABLET.DR 1 Tablet ORAL DAILY Instructions: stop after 4 weeks Start taking the following new medications: Clopidogrel Bisulfate (Plavix) 75 MG TABLET 1 Tablet ORAL DAILY Qty = 90 No Refills Copies To: Madi Flores DO
[2018-01-07 14:10] VITALS: BP 118/80
--- NOTE | 2018-01-07 14:15 | PN- Neurology ---
See Addendum Subjective Subjective: Left sided weakness Objective Vital Signs and I&Os Vital Signs Date Time Temp Pulse Resp B/P B/P Pulse O2 O2 Flow FiO2 Mean Ox Delivery Rate 01/07 0818 60 98/60 01/07 0648 97.7 66 18 98/62 93 Room Air 01/06 2138 97.3 64 18 122/80 93 01/06 1518 98.4 63 18 112/66 92 Intake & Output 01/07 1600 01/07 0800 01/07 0000 01/06 1600 01/06 0800 01/06 0000 Intake Total 120 450 495 160 Output Total 125 300 150 Balance 120 450 370 -300 10 Intake, IV 250 375 Intake, Oral 120 200 120 160 Output, Urine 125 300 150 Patient 140 lb Weight Weight Reported by Patient Measurement Method Awake and alert Left neglect Left facial paresis dense left hemiparesis Left babinski CTA without clear etiology for stroke. MRI limited Current Medications: Current Medications Sig/Samir Start time Last Medication Dose Route Stop Time Status Admin Acetaminophen 650 MG Q6P PRN 01/05 2145 AC PO Aspirin Buffered 81 MG DAILY 01/06 0900 AC 01/07 PO 0818 Atorvastatin Calcium 20 MG 1700 01/07 1700 AC PO Atorvastatin Calcium 80 MG DAILY 01/06 0900 DC 01/07 PO 0818 Azithromycin 500 MG DAILY 01/06 0900 AC 01/07 Sodium Chloride 250 ML IV 0818 Ceftriaxone Sodium 1,000 MG DAILY 01/06 0900 AC 01/07 IV 0818 Clopidogrel Bisulfate 75 MG DAILY 01/06 1000 AC 01/07 PO 0818 Heparin Sodium 5,000 UNIT Q8 01/06 0600 AC 01/07 (Porcine) SC 0611 Lactated Ringer's 1,000 ML ONCE ONE 01/06 1115 DC 01/06 IV 01/06 1914 1342 Lisinopril 20 MG DAILY 01/06 0900 AC 01/06 PO 0851 Melatonin 5 MG ONCE ONE 01/07 0030 DC 01/07 PO 01/07 0031 0022 Assessment/Plan Assessment: Acute right hemispheric infarct, not initially visualized on limited scan Plan: PT, OT, ST Repeat MRI brain DVT precautions Statin and anti-platelet rx. Will almost certainly need SNF and ongoing therapy
[2018-01-07 21:45] VITALS: BP 132/84
[2018-01-08 06:38] VITALS: BP 140/78
--- NOTE | 2018-01-08 07:27 | PN- Housestaff ---
Gray Lai 01/08/18 07: Subjective Follow-up For: Pneumonia Stroke Abnormal LFTs Positive urine cultures Complaints: no complaints Tele-Events Since Last Visit: Normal sinus rhythm no acute events Subjective: Patient was seen and examined this morning. He is alert awake and alert and oriented to time place and person. No new focal neurologic deficits, tingling numbness, gait changes, vision changes. Continues to have difficulty with speech. Review of Systems Constitutional: Reports: see HPI. Objective Last 24 Hrs of Vital Signs/I&O Vital Signs Date Time Temp Pulse Resp B/P B/P Pulse O2 O2 Flow FiO2 Mean Ox Delivery Rate 01/08 0638 98.6 69 18 140/78 94 Room Air 01/07 2145 98.2 8 18 132/84 94 Room Air 01/07 1410 97.6 80 18 118/80 94 Room Air 01/07 0818 60 98/60 Intake & Output 01/08 0800 01/08 0000 01/07 1600 Intake Total 850 Output Total 250 351 Balance -250 499 Intake, IV 250 Intake, Oral 600 Output, 1 Drainage Output, Urine 250 350 Physical Exam General Appearance: Alert, Oriented X3, Cooperative, No Acute Distress Other Physical Findings: HEENT: Normocephalic, atraumatic, EOMI, slightly dry mucous membranes. Neck: No JVD, no bruits. Lungs: Decreased breath sounds bilaterally. Heart: S1, S2 no murmur, gallop, or rub. Abdomen: Soft, nontender, positive bowel sounds. Extremities: No edema. Normal tone upper and lower extremities Gross motor strength intact Deep tendon reflexes hypoactive visual bhat intact, no facial weakness or facial sensory loss, lack of facial expression, tongue deviates to right with right-sided atrophy, palate and shoulders intact Current Medications: Current Medications Sig/Samir Start time Last Medication Dose Route Stop Time Status Admin Acetaminophen 650 MG Q6P PRN 01/05 2145 AC PO Aspirin Buffered 81 MG DAILY 01/06 09 AC 01/07 PO 0818 Atorvastatin Calcium 20 MG 1700 01/07 1700 AC 01/07 PO 1839 Atorvastatin Calcium 80 MG DAILY 01/06 0900 DC 01/07 PO 0818 Azithromycin 500 MG DAILY 01/06 09 AC 01/07 Sodium Chloride 250 ML IV 08 Ceftriaxone Sodium 1,000 MG DAILY 01/06 09 AC 01/07 IV 0818 Clopidogrel Bisulfate 75 MG DAILY 01/06 1000 AC 01/07 PO 0818 Heparin Sodium 5,000 UNIT Q8 01/06 0600 AC 01/08 (Porcine) SC 0626 Lisinopril 20 MG DAILY 01/06 0900 AC 01/06 PO 0851 Melatonin 3 MG ONCE ONE 01/07 2200 DC 01/07 PO 01/07 2201 2210 Melatonin 5 MG .[facility]-MED ONE 01/07 1830 DC PO 01/07 1831 Patient Medication 1 ED ONE ONE 01/07 1715 DC Teaching ED 01/07 1716 Last 24 Hrs of Lab/David Results Last 24 Hrs of Labs/Mics: Laboratory Tests 01/08/18 0639: Sodium Pending, Potassium Pending, Chloride Pending, Carbon Dioxide Pending, Anion Gap Pending, BUN Pending, Creatinine Pending, BUN/Creatinine Ratio Pending , Total Bilirubin Pending, Direct Bilirubin Pending, AST Pending, ALT Pending, Alkaline Phosphatase Pending, Total Protein Pending, Albumin Pending, CBC w Diff Pending, WBC Pending, RBC Pending, Hgb Pending, Hct Pending, MCV Pending, MCH Pending, MCHC Pending, RDW Pending, Plt Count Pending, MPV Pending Assessment/Plan Assessment: Patient is a 72-year-old male past medical history significant for hypertension, hyperlipidemia, past smoker for 40+ years (2ppd). He presented to the hospital with c/o cough produtive of phelgm, and weakness in his legs. His other symptom is of sudden weakness when he wanted to get up from a reclining chair, but was unable to do so due to sudden bilateral lower extremity weakness on Saturday (12/31/17). He also had slurring of speech, and tongue deviated to the right upon protrusion, word salad, which since then has gradually improved but the patient still has lower extremity weakness which is better, slurring of speech, tongue deviation, but as well oriented, comprehends well, and responds appropriately. He does not have history of any head trauma, fall, bowel/bladder incontinence, changes in sensation, blurring of vision, double vision, facial deviation. Patient was initially admitted to [facility] on 01/05/2018 and later transferred to telemetry on 01/06/2018 for further stroke workup. #Community-acquired pneumonia Patient presented with worsening productive cough with chest x-ray findings suggestive of pneumonia. He was admitted initially to general medicine for management of community-acquired pneumonia. Given his stroke like symptoms which has been ongoing for last 1 week there is possibility of aspiration leading to pneumonia. * Monitor vitals every shift * Maintain saturation above 90 * Continue IV ceftriaxone and azithromycin day 4 * Follow-up blood cultures, sputum cultures neg so far * Monitor for fever, leukocytosis. Possible subacute stroke Patient's clinical feature of sudden onset bilateral leg weakness, slurring of speech, tongue deviation, lasting more than 24 hours, which is now gradually resolving, still with weakness and slurring of speech, tongue deviation is suggestive of stroke, likely resolving. His CAT scan is negative for any bleed, and when compared with previous MRI shows some lacunar infarcts, but no gross area of acute ischemia. * neurology consultation * frequent neurochecks * MRI head was done which showed no acute bleed or infarcts * plavix 75 * aspirin 81 * Lipitor 80 * Echocardiogram showed stage 1 diastolic dysfunction * Cardiology was consulted * Passed bedside swallow/formal swallow * PT OT * Speech therapy Gallbladder wall thickening Patient has abnormal liver function test in the context of gallbladder wall thickening with a negative Cornelius sign. He does have icterus, and has history of chronic alcoholism, which makes alcoholic hepatitis likely. CAT scan abdomen showed mild gallbladder wall thickening and enhancement of gallbladder with tiny calcified gallstones. Right upper quadarnt us was dne with no signs of cholecystitis. * Follow-up hepatitis panel neg * Repeat LFTs in a.m. * Alcohol cessation counseling Abnormal urine analysis Urine analysis positive for nitrite, esterase, WBCs and bacteria. He is asymptomatic denied any frequency urgency dysuria fever, chills. However he has leukocyte count elevation. * Urine cultures growing gram-positive cocci * Will follow up final urine cultures and sensitivities * Adjust antibiotics accordingly * Meanwhile continue ceftriaxone day 4. thyroid gland density The thyroid gland has heterogenous density with a 5 mm area of low density. In view of the patient's age and sex a nonemergent thyroid ultrasound is suggested for further assessment. * will get op thyroid ultrasound Hypertension Will continue his home dose of antiHTN meds LISINOPRIL but holding Bisoprolol/HCTZ #Diet: REGULAR DIET #DVT ppx: SQ Heparin #Code status: Full code Problem List: 1. Pneumonia 2. Stroke Pain Ratin Pain Location: n/a Pain Goal: Remain pain free Pain Plan: tylenol Tomorrow's Labs & Rationales: none Kory Paredes 01/08/18 1016: Attending MD Review Statement Attending Statement Attending MD Statement: examined this patient, discuss w/resident/PA/ASSISTANT PROFESSOR OF ENGLISH, agreed w/resident/PA/ASSISTANT PROFESSOR OF ENGLISH, reviewed EMR data (avail), discussed with nursing, discussed with case mgmt Attending Assessment/Plan: Multi infarct Stroke on imaging with speech slurring and tongue deviation. neuro consult appreciated. cont on asa and plavix for 4 weeks , then will dc the asa. will cont on lipitor 20mg qhs. echo results show normal EF with stage 1 diastolic dysfunction. Pneumonia- cont on ceftriaxone and zithromax. Elevated LFts- abdominal ultrasound showing no acute cholecysitis. Urine cultures growing gram positive cocci- will f/u on final results. PT recommending short term rehab. d/w complex case manager- she is going to work on placement. dw/ pt the care plan.
[2018-01-08 07:54] LABS: ABSOLUTE BASOPHIL COUNT 0 /CUMM (0.0-0.2); ABSOLUTE EOSINOPHIL COUNT 0 /CUMM (0.0-0.7); ABSOLUTE GRANULOCYTE CT 7.9 /CUMM (1.4-6.5); ABSOLUTE LYMPH COUNT 1.2 /CUMM (1.2-3.4); ABSOLUTE MONOCYTE COUNT 0.6 /CUMM (0.10-0.60); BASOPHIL % 0.3 % (0.0-2.0); EOSINOPHIL % 0.3 % (0-5); GRANULOCYTE % 80.7 % (42.2-75.2); HEMATOCRIT 43.8 % (42-52); MEAN CORPUSCULAR VOLUME 84.8 FL (80.0-94.0); MEAN PLATELET VOLUME 7.3 FL (7.4-10.4); PLATELET COUNT 313 /CUMM (130-400); RBC DISTRIBUTION WIDTH 14.3 % (11.5-14.5); RED BLOOD CELL CT 5.16 /CUMM (4.70-6.10); WHITE BLOOD CELL COUNT 9.8 /CUMM (4.8-10.8)
[2018-01-08 14:46] VITALS: BP 124/70
--- NOTE | 2018-01-08 17:05 | PN- Cardiology ---
Subjective Subjective: No complaints. Admits to leg weakness. Objective Vital Signs and I&Os Vital Signs Date Time Temp Pulse Resp B/P B/P Pulse O2 O2 Flow FiO2 Mean Ox Delivery Rate 01/08 1446 98.6 78 18 124/70 95 01/08 1019 Room Air 01/08 1009 Room Air 01/08 0839 79 130/70 01/08 0638 98.6 69 18 140/78 94 Room Air 01/07 2145 98.2 8 18 132/84 94 Room Air Intake & Output 01/08 1600 01/08 0800 01/08 0000 01/07 1600 01/07 0800 01/07 0000 Intake Total 700 100 850 120 450 Output Total 600 625 250 351 Balance 100 -525 -250 499 120 450 Intake, IV 250 250 Intake, Oral 700 100 600 120 200 Output, 1 Drainage Output, Urine 600 625 250 350 Physical Exam: Well-developed, thin elderly male in no acute distress. Vital signs: See above. HEENT: Normocephalic, atraumatic, EOMI, slightly dry mucous membranes. Neck: No JVD, no bruits. Lungs: Decreased breath sounds bilaterally. Heart: S1, S2 no murmur, gallop, or rub. PMI not well felt. Abdomen: Soft, nontender, positive bowel sounds. Extremities: No edema. Current Medications: Current Medications Sig/Samir Start time Last Medication Dose Route Stop Time Status Admin Acetaminophen 650 MG Q6P PRN 01/05 2145 AC PO Aspirin Buffered 81 MG DAILY 01/06 09 AC 01/08 PO 0839 Atorvastatin Calcium 20 MG 1700 01/07 1700 AC 01/07 PO 1839 Azithromycin 500 MG DAILY 01/06 09 AC 01/08 Sodium Chloride 250 ML IV 0839 Bisacodyl 10 MG ONCE ONE 01/08 1015 DC IN 01/08 1016 Ceftriaxone Sodium 1,000 MG DAILY 01/06 0900 AC 01/08 IV 0839 Clopidogrel Bisulfate 75 MG DAILY 01/06 1000 AC 01/08 PO 0839 Heparin Sodium 5,000 UNIT Q8 01/06 0600 AC 01/08 (Porcine) SC 1324 Lisinopril 20 MG DAILY 01/06 0900 AC 01/08 PO 0839 Melatonin 3 MG ONCE ONE 01/07 2200 DC 01/07 PO 01/07 220 2210 Melatonin 5 MG .[facility]-MED ONE 01/07 1830 DC PO 01/07 1831 Patient Medication 1 ED ONE ONE 01/07 1715 [facility] ED 01/07 1716 Polyethylene Glycol 17 GM DAILY 01/08 1002 AC 01/08 PO 1301 Senna/Docusate Sodium 2 TAB DAILY PRN 01/08 1015 AC 01/08 PO 1301 Results Last 48 Hrs of Labs/Mics: Laboratory Tests 01/08/18 0639: Anion Gap 11, Estimated GFR > 60, BUN/Creatinine Ratio 32.9 H, Total Bilirubin 0.7, Direct Bilirubin 0.2, AST 114 H, ALT 83 H, Alkaline Phosphatase 109, Total Protein 5.1 L, Albumin 2.4 L, CBC w Diff NO MAN DIFF REQ, RBC 5.16, MCV 84.8, MCH 28.0, MCHC 33.0, RDW 14.3, MPV 7.3 L, Gran % 80.7 H, Lymphocytes % 12.6 L, Monocytes % 6.1, Eosinophils % 0.3, Basophils % 0.3, Absolute Granulocytes 7.9 H, Absolute Lymphocytes 1.2, Absolute Monocytes 0.6, Absolute Eosinophils 0, Absolute Basophils 0 01/07/18 0610: Anion Gap 11, Estimated GFR > 60, BUN/Creatinine Ratio 47.1 H, ESR Westergren 47 H Recent Imaging Studies: Abdominal ultrasound 01/07/2018 1. Although there are gallstones and echogenic bile present within the gallbladder, the patient did not report a sonographic Cornelius sign. Furthermore, the gallbladder wall is of normal thickness. These findings are not supportive of acute cholecystitis. Clinical correlation requested. 2. Minimal right hydronephrosis, similar to the prior CT which suggested UPJ stricture physiology. Echocardiogram 01/06/2018 1. Normal size left ventricle with normal wall thickness and systolic function with an estimated EF of 60%. 2. Normal right ventricular size and function. 3. Normal atrial size with intact interatrial septum. 4. The Doppler portion revealed trace TR and no evidence of pulmonary hypertension. Assessment/Plan Assessment/Plan [id number] w/ hx fmr heavy tob use (2 ppd 40+ yrs), HTN, HLD, stroke (lacunar by head CT) who presented to the ED on 01/05/2018 with a 1-1/2 wk of prod cough, congestion, decreased by mouth intake, w/o SOB, LE edema, CP, palps, fever, chills, sick contacts, etc. Additionally, he has been expeiencing generalized weakness since Saturday, 2017 w/ difficulty arising from his recliner. After awakening on 12/31/2017 he "felt funny", had difficulty w/ his memory, speech, swallowing, and gait w/ the suspicion that he is having a neurological events. Neurology reevaluated Mr. Thapa on 01/07/2018 and felt his presentation was c/w an acute right hemispheric infarct. There remains a high likelihood that PAF may have been responsible for his presentation and, as such, need to consider further evaluation for this with a [employer] Reveal LINQ recording system. Recommendations: * Continue on telemetry to help exclude PAF and consider implantation of a [employer]onic Reveal LINQ recorder. * Repeat brain MRI. * Physical, occupational, speech therapy. * Continue high dose statin. * Continue dual antiplatelet therapy. * Thyroid ultrasound, as per radiology. * DVT prophylaxis. Continue telemetry? Yes
[2018-01-08 23:02] VITALS: BP 120/62
[2018-01-09 06:35] VITALS: BP 142/86
--- NOTE | 2018-01-09 07:20 | PN- Housestaff ---
Gray Lai 01/09/18 0718: Subjective Follow-up For: Pneumonia Stroke Abnormal LFTs Complaints: no complaints Tele-Events Since Last Visit: Normal sinus rhythm no acute events Subjective: Patient was seen and examined this morning. He is alert awake and alert and oriented to time place and person. No new focal neurologic deficits, tingling numbness, gait changes, vision changes. Continues to have difficulty with speech. Review of Systems Constitutional: Reports: see HPI. Objective Last 24 Hrs of Vital Signs/I&O Vital Signs Date Time Temp Pulse Resp B/P B/P Pulse O2 O2 Flow FiO2 Mean Ox Delivery Rate 01/09 0635 98.1 68 18 142/86 95 Room Air 01/08 2302 98.0 70 18 120/62 95 Room Air 01/08 2246 Room Air 01/08 1446 98.6 78 18 124/70 95 01/08 1019 Room Air 01/08 1009 Room Air 01/08 0839 79 130/70 Intake & Output 01/09 1600 01/09 0800 01/09 0000 Intake Total Output Total 375 350 Balance -375 -350 Number 5 Bowel Movements Output, Urine 375 350 Patient 59.477 kg Weight Weight Bed scale Measurement Method Physical Exam General Appearance: Alert, Oriented X3, Cooperative, No Acute Distress Other Physical Findings: HEENT: Normocephalic, atraumatic, EOMI, slightly dry mucous membranes. Neck: No JVD, no bruits. Lungs: Decreased breath sounds bilaterally. Heart: S1, S2 no murmur, gallop, or rub. Abdomen: Soft, nontender, positive bowel sounds. Extremities: No edema. Normal tone upper and lower extremities Gross motor strength intact Deep tendon reflexes hypoactive visual bhat intact, no facial weakness or facial sensory loss, lack of facial expression, tongue deviates to right with right-sided atrophy, palate and shoulders intact Current Medications: Current Medications Sig/Samir Start time Last Medication Dose Route Stop Time Status Admin Acetaminophen 650 MG Q6P PRN 01/05 2145 AC PO Aspirin Buffered 81 MG DAILY 01/06 09 AC 01/08 PO 0839 Atorvastatin Calcium 20 MG 1700 01/07 1700 AC 01/08 PO 1736 Azithromycin 500 MG DAILY 01/06 09 AC 01/08 Sodium Chloride 250 ML IV 0839 Bisacodyl 10 MG ONCE ONE 01/08 1015 DC MD 01/08 1016 Ceftriaxone Sodium 1,000 MG DAILY 01/06 0900 AC 01/08 IV 0839 Clopidogrel Bisulfate 75 MG DAILY 01/06 1000 AC 01/08 PO 0839 Heparin Sodium 5,000 UNIT Q8 01/06 0600 AC 01/09 (Porcine) SC 0553 Lisinopril 20 MG DAILY 01/06 0900 AC 01/08 PO 0839 Melatonin 5 MG ONCE ONE 01/08 2245 DC 01/08 PO 01/08 2246 2240 Polyethylene Glycol 17 GM DAILY 01/08 1002 AC 01/08 PO 1301 Senna/Docusate Sodium 2 TAB DAILY PRN 01/08 1015 AC 01/08 PO 1301 Assessment/Plan Assessment: Patient is a 72-year-old male past medical history significant for hypertension, hyperlipidemia, past smoker for 40+ years (2ppd). He presented to the hospital with c/o cough produtive of phelgm, and weakness in his legs. His other symptom is of sudden weakness when he wanted to get up from a reclining chair, but was unable to do so due to sudden bilateral lower extremity weakness on Saturday (12/31/17). He also had slurring of speech, and tongue deviated to the right upon protrusion, word salad, which since then has gradually improved but the patient still has lower extremity weakness which is better, slurring of speech, tongue deviation, but as well oriented, comprehends well, and responds appropriately. He does not have history of any head trauma, fall, bowel/bladder incontinence, changes in sensation, blurring of vision, double vision, facial deviation. Patient was initially admitted to [facility] on 01/05/2018 and later transferred to telemetry on 01/06/2018 for further stroke workup. #Community-acquired pneumonia Patient presented with worsening productive cough with chest x-ray findings suggestive of pneumonia. He was admitted initially to general medicine for management of community-acquired pneumonia. Given his stroke like symptoms which has been ongoing for last 1 week there is possibility of aspiration leading to pneumonia. * Monitor vitals every shift * Maintain saturation above 90 * Continue IV ceftriaxone and azithromycin day 5 * Follow-up blood cultures, sputum cultures neg so far * Monitor for fever, leukocytosis. Possible subacute stroke Patient's clinical feature of sudden onset bilateral leg weakness, slurring of speech, tongue deviation, lasting more than 24 hours, which is now gradually resolving, still with weakness and slurring of speech, tongue deviation is suggestive of stroke, likely resolving. His CAT scan is negative for any bleed, and when compared with previous MRI shows some lacunar infarcts, but no gross area of acute ischemia. * neurology consultation * frequent neurochecks * MRI head was done which showed no acute bleed or infarcts * plavix 75 * aspirin 81 * Lipitor 80 * Echocardiogram showed stage 1 diastolic dysfunction * Cardiology was consulted * Passed bedside swallow/formal swallow * PT OT * Speech therapy Gallbladder wall thickening Patient has abnormal liver function test in the context of gallbladder wall thickening with a negative Cornelius sign. He does have icterus, and has history of chronic alcoholism, which makes alcoholic hepatitis likely. CAT scan abdomen showed mild gallbladder wall thickening and enhancement of gallbladder with tiny calcified gallstones. Right upper quadarnt us was dne with no signs of cholecystitis. * Follow-up hepatitis panel neg * Alcohol cessation counseling Abnormal urine analysis Urine analysis positive for nitrite, esterase, WBCs and bacteria. He is asymptomatic denied any frequency urgency dysuria fever, chills. However he has leukocyte count elevation. Urine cultures growing multiple colony types consistent with contamination. thyroid gland density The thyroid gland has heterogenous density with a 5 mm area of low density. In view of the patient's age and sex a nonemergent thyroid ultrasound is suggested for further assessment. * will get op thyroid ultrasound Hypertension continue his home dose of LISINOPRIL holding Bisoprolol/HCTZ #Diet: REGULAR DIET #DVT ppx: SQ Heparin #Code status: Full code Problem List: 1. Pneumonia 2. Stroke Pain Ratin Pain Location: n/a Pain Goal: Remain pain free Pain Plan: tylinol Tomorrow's Labs & Rationales: cbc bep ParedesDexteramanda 01/09/18 1355: Attending MD Review Statement Attending Statement Attending MD Statement: examined this patient, discuss w/resident/PA/BLADDER TRIMMER, agreed w/resident/PA/BLADDER TRIMMER, reviewed EMR data (avail), discussed with nursing, discussed with case mgmt Attending Assessment/Plan: Multi infarct Stroke on imaging with speech slurring and tongue deviation. neuro consult appreciated. cont on asa and plavix for 4 weeks , then will dc the asa. will cont on lipitor 20mg qhs. echo results show normal EF with stage 1 diastolic dysfunction. Pneumonia- cont on ceftriaxone and zithromax. Elevated LFts- abdominal ultrasound showing no acute cholecysitis. PT recommending short term rehab. d/w mental health case manager- she is going to work on placement. Awaiting insurance authorization. dw/ pt the care plan.
[2018-01-09 14:44] VITALS: BP 118/68
--- NOTE | 2018-01-09 16:31 | PN- Cardiology ---
Subjective Subjective: No complaints. Sinus rhythm on telemetry. Objective Vital Signs and I&Os Vital Signs Date Time Temp Pulse Resp B/P B/P Pulse O2 O2 Flow FiO2 Mean Ox Delivery Rate 01/09 1444 97.4 71 18 118/68 96 Room Air 01/09 0829 75 120/64 01/09 0800 Room Air Room Air 01/09 0635 98.1 68 18 142/86 95 Room Air 01/08 2302 98.0 70 18 120/62 95 Room Air 01/08 2246 Room Air Intake & Output 01/09 1600 01/09 0800 01/09 0000 01/08 1600 01/08 0800 01/08 0000 Intake Total 750 700 100 Output Total 600 375 350 600 625 250 Balance 150 -375 -350 100 -525 -250 Intake, Oral 750 700 100 Number 2 5 Bowel Movements Output, Urine 600 375 350 600 625 250 Patient 131 lb Weight Weight Bed scale Measurement Method Physical Exam: Well-developed, thin elderly male in no acute distress. Vital signs: See above. HEENT: Normocephalic, atraumatic, EOMI, slightly dry mucous membranes. Neck: No JVD, no bruits. Lungs: Decreased breath sounds bilaterally. Heart: S1, S2 no murmur, gallop, or rub. PMI not well felt. Abdomen: Soft, nontender, positive bowel sounds. Extremities: No edema. Current Medications: Current Medications Sig/Samir Start time Last Medication Dose Route Stop Time Status Admin Acetaminophen 650 MG Q6P PRN 01/05 2145 AC PO Aspirin Buffered 81 MG DAILY 01/06 09 AC 01/09 PO 0827 Atorvastatin Calcium 20 MG 1700 01/07 1700 AC 01/08 PO 1736 Azithromycin 500 MG DAILY 01/06 09 DC 01/09 Sodium Chloride 250 ML IV 0842 Ceftriaxone Sodium 1,000 MG DAILY 01/06 09 DC 01/09 IV 0830 Clopidogrel Bisulfate 75 MG DAILY 01/06 1000 AC 01/09 PO 0827 Heparin Sodium 5,000 UNIT Q8 01/06 06 AC 01/09 (Porcine) SC 1359 Lisinopril 20 MG DAILY 01/06 09 AC 01/09 PO 0829 Melatonin 5 MG ONCE ONE 01/08 2245 DC 01/08 PO 01/08 2246 2240 Polyethylene Glycol 17 GM DAILY 01/08 1002 AC 01/08 PO 1301 Senna/Docusate Sodium 2 TAB DAILY PRN 01/08 1015 AC 01/08 PO 1301 Results Last 48 Hrs of Labs/Mics: Laboratory Tests 01/08/18 0639: Anion Gap 11, Estimated GFR > 60, BUN/Creatinine Ratio 32.9 H, Total Bilirubin 0.7, Direct Bilirubin 0.2, AST 114 H, ALT 83 H, Alkaline Phosphatase 109, Total Protein 5.1 L, Albumin 2.4 L, CBC w Diff NO MAN DIFF REQ, RBC 5.16, MCV 84.8, MCH 28.0, MCHC 33.0, RDW 14.3, MPV 7.3 L, Gran % 80.7 H, Lymphocytes % 12.6 L, Monocytes % 6.1, Eosinophils % 0.3, Basophils % 0.3, Absolute Granulocytes 7.9 H, Absolute Lymphocytes 1.2, Absolute Monocytes 0.6, Absolute Eosinophils 0, Absolute Basophils 0 Assessment/Plan Assessment/Plan 72-y-o-w-m w/ hx fmr heavy tob use (2 ppd 40+ yrs), HTN, HLD, stroke (lacunar by head CT) who presented to the ED on 01/05/2018 with a 1-1/2 wk of prod cough, congestion, decreased by mouth intake, w/o SOB, LE edema, CP, palps, fever, chills, sick contacts, etc. Additionally, he has been expeiencing generalized weakness since Saturday, 2017 w/ difficulty arising from his recliner. After awakening on 12/31/2017 he "felt funny", had difficulty w/ his memory, speech, swallowing, and gait w/ the suspicion that he is having a neurological events. Neurology reevaluated Mr. Thapa on 01/07/2018 and felt his presentation was c/w an acute right hemispheric infarct. There remains a high likelihood that PAF may have been responsible for his presentation and, as such, need to consider further evaluation for this with a Med[employer]onic Reveal LINQ recording system. Recommendations: * Continue on telemetry to help exclude PAF and consider implantation of a Medtronic Reveal LINQ recording system. * Continue high dose statin. * Continue dual antiplatelet therapy. * Physical, occupational, speech therapy. * DVT prophylaxis. Continue telemetry? Yes
[2018-01-09 22:21] VITALS: BP 122/70
[2018-01-10 06:40] VITALS: BP 116/58
--- NOTE | 2018-01-10 07:22 | PN- Housestaff ---
Gray Lai 01/10/18 07: Subjective Follow-up For: Pneumonia Stroke Abnormal LFTs Complaints: no complaints Tele-Events Since Last Visit: Normal sinus rhythm no acute events Subjective: Patient was seen and examined this morning. He is alert awake and alert and oriented to time place and person. No new focal neurologic deficits, tingling numbness, gait changes, vision changes. Continues to have difficulty with speech. waiting for insurance approval to go for acute rehab. Review of Systems Constitutional: Reports: see HPI. Objective Last 24 Hrs of Vital Signs/I&O Vital Signs Date Time Temp Pulse Resp B/P B/P Pulse O2 O2 Flow FiO2 Mean Ox Delivery Rate 01/10 0640 98.2 72 18 116/58 95 Room Air 01/09 2221 97.3 64 18 122/70 95 Room Air 01/09 1444 97.4 71 18 118/68 96 Room Air 01/09 0829 75 120/64 01/09 0800 Room Air Room Air Intake & Output 01/10 0800 01/10 0000 01/09 1600 Intake Total 120 120 750 Output Total 750 300 600 Balance -630 -180 150 Intake, Oral 120 120 750 Number 2 Bowel Movements Output, Urine 750 300 600 Patient 60.81 kg Weight Physical Exam General Appearance: Alert, Oriented X3, Cooperative, No Acute Distress Other Physical Findings: HEENT: Normocephalic, atraumatic, EOMI, slightly dry mucous membranes. Neck: No JVD, no bruits. Lungs: Decreased breath sounds bilaterally. Heart: S1, S2 no murmur, gallop, or rub. Abdomen: Soft, nontender, positive bowel sounds. Extremities: No edema. Normal tone upper and lower extremities Gross motor strength intact Deep tendon reflexes hypoactive visual bhat intact, no facial weakness or facial sensory loss, lack of facial expression, tongue deviates to right with right-sided atrophy, palate and shoulders intact Current Medications: Current Medications Sig/Samir Start time Last Medication Dose Route Stop Time Status Admin Acetaminophen 650 MG Q6P PRN 01/05 2145 AC PO Aspirin Buffered 81 MG DAILY 01/06 900 AC 01/09 PO 0827 Atorvastatin Calcium 20 MG 1700 01/07 1700 AC 01/09 PO 1651 Azithromycin 500 MG DAILY 01/06 900 DC 01/09 Sodium Chloride 250 ML IV 0842 Ceftriaxone Sodium 1,000 MG DAILY 01/06 900 DC 01/09 IV 0830 Clopidogrel Bisulfate 75 MG DAILY 01/06 1000 AC 01/09 PO 08 Heparin Sodium 5,000 UNIT Q8 01/06 0600 AC 01/10 (Porcine) SC 0611 Lisinopril 20 MG DAILY 01/06 0900 AC 01/09 PO 0829 Melatonin 5 MG ONCE ONE 01/09 2045 DC 01/09 PO 01/09 Polyethylene Glycol 17 GM DAILY 01/08 1002 AC 01/08 PO 1301 Senna/Docusate Sodium 2 TAB DAILY PRN 01/08 1015 AC 01/08 PO 1301 Assessment/Plan Assessment: Patient is a 72-year-old male past medical history significant for hypertension, hyperlipidemia, past smoker for 40+ years (2ppd). He presented to the hospital with c/o cough produtive of phelgm, and weakness in his legs. His other symptom is of sudden weakness when he wanted to get up from a reclining chair, but was unable to do so due to sudden bilateral lower extremity weakness on Saturday (12/31/17). He also had slurring of speech, and tongue deviated to the right upon protrusion, word salad, which since then has gradually improved but the patient still has lower extremity weakness which is better, slurring of speech, tongue deviation, but as well oriented, comprehends well, and responds appropriately. He does not have history of any head trauma, fall, bowel/bladder incontinence, changes in sensation, blurring of vision, double vision, facial deviation. Patient was initially admitted to [facility] on 01/05/2018 and later transferred to telemetry on 01/06/2018 for further stroke workup. #Community-acquired pneumonia Patient presented with worsening productive cough with chest x-ray findings suggestive of pneumonia. He was admitted initially to general medicine for management of community-acquired pneumonia. Given his stroke like symptoms which has been ongoing for last 1 week there is possibility of aspiration leading to pneumonia. * Monitor vitals every shift * Maintain saturation above 90 * completed 5 days IV ceftriaxone and azithromycin * Follow-up blood cultures, sputum cultures neg so far * Monitor for fever, leukocytosis. Possible subacute stroke Patient's clinical feature of sudden onset bilateral leg weakness, slurring of speech, tongue deviation, lasting more than 24 hours, which is now gradually resolving, still with weakness and slurring of speech, tongue deviation is suggestive of stroke, likely resolving. His CAT scan is negative for any bleed, and when compared with previous MRI shows some lacunar infarcts, but no gross area of acute ischemia. * neurology on board * frequent neurochecks * MRI head was done which showed no acute bleed or infarcts * plavix 75 * aspirin 81 * Lipitor 80 * Echocardiogram showed stage 1 diastolic dysfunction * Cardiology was consulted, recommending for outpatient loop recorder. * Passed bedside swallow/formal swallow * PT OT * Speech therapy * Patient is going for acute rehab Gallbladder wall thickening Patient has abnormal liver function test in the context of gallbladder wall thickening with a negative Cornelius sign. He does have icterus, and has history of chronic alcoholism, which makes alcoholic hepatitis likely. CAT scan abdomen showed mild gallbladder wall thickening and enhancement of gallbladder with tiny calcified gallstones. Right upper quadarnt us was dne with no signs of cholecystitis. * Follow-up hepatitis panel neg * Alcohol cessation counseling Abnormal urine analysis Urine analysis positive for nitrite, esterase, WBCs and bacteria. He is asymptomatic denied any frequency urgency dysuria fever, chills. However he has leukocyte count elevation. Urine cultures growing multiple colony types consistent with contamination. thyroid gland density The thyroid gland has heterogenous density with a 5 mm area of low density. In view of the patient's age and sex a nonemergent thyroid ultrasound is suggested for further assessment. * will get op thyroid ultrasound Hypertension continue his home dose of LISINOPRIL holding Bisoprolol/HCTZ #Diet: REGULAR DIET #DVT ppx: SQ Heparin #Code status: Full code Problem List: 1. Pneumonia 2. Stroke Pain Ratin Pain Location: n/a Pain Goal: Remain pain free Pain Plan: tylenol Tomorrow's Labs & Rationales: none Kory Paredes 01/10/18 1216: Attending MD Review Statement Attending Statement Attending MD Statement: examined this patient, discuss w/resident/PA/SCOUT, agreed w/resident/PA/SCOUT, reviewed EMR data (avail), discussed with nursing, discussed with case mgmt Attending Assessment/Plan: Multi infarct Stroke on imaging with speech slurring and tongue deviation. neuro consult appreciated. cont on asa and plavix for 4 weeks , then will dc the asa. will cont on lipitor 20mg qhs. echo results show normal EF with stage 1 diastolic dysfunction. PT recommending acute rehab. Case management working on placement. Pneumonia- cont on ceftriaxone and zithromax. Finished abx. Elevated LFts- abdominal ultrasound showing no acute cholecysitis. dw pt the care plan.
--- NOTE | 2018-01-10 12:38 | PN- Cardiology ---
Subjective Subjective: No complaints. Maintaining sinus rhythm on telemetry. Objective Vital Signs and I&Os Vital Signs Date Time Temp Pulse Resp B/P B/P Pulse O2 O2 Flow FiO2 Mean Ox Delivery Rate 01/10 1117 Room Air 01/10 0909 72 116/58 01/10 0900 Room Air 01/10 0640 98.2 72 18 116/58 95 Room Air 01/09 2221 97.3 64 18 122/70 95 Room Air 01/09 1444 97.4 71 18 118/68 96 Room Air Intake & Output 01/10 1600 01/10 0800 01/10 0000 01/09 1600 01/09 0800 01/09 0000 Intake Total 120 120 750 Output Total 400 750 300 600 375 350 Balance -400 -630 -180 150 -375 -350 Intake, Oral 120 120 750 Number 2 5 Bowel Movements Output, Urine 400 750 300 600 375 350 Patient 134 lb 131 lb Weight Weight Bed scale Measurement Method Physical Exam: Well-developed, thin elderly male in no acute distress. Vital signs: See above. HEENT: Normocephalic, atraumatic, EOMI, slightly dry mucous membranes. Neck: No JVD, no bruits. Lungs: Decreased breath sounds bilaterally. Heart: S1, S2 no murmur, gallop, or rub. PMI not well felt. Abdomen: Soft, nontender, positive bowel sounds. Extremities: No edema. Current Medications: Current Medications Sig/Samir Start time Last Medication Dose Route Stop Time Status Admin Acetaminophen 650 MG Q6P PRN 01/05 2145 AC PO Aspirin Buffered 81 MG DAILY 01/06 900 AC 01/09 PO 0827 Atorvastatin Calcium 20 MG 1700 01/07 1700 AC 01/09 PO 1651 Azithromycin 500 MG DAILY 01/06 09 DC 01/09 Sodium Chloride 250 ML IV 0842 Ceftriaxone Sodium 1,000 MG DAILY 01/06 09 DC 01/09 IV 0830 Clopidogrel Bisulfate 75 MG DAILY 01/06 1000 AC 01/10 PO 0909 Heparin Sodium 5,000 UNIT Q8 01/06 06 AC 01/10 (Porcine) SC 0611 Lisinopril 20 MG DAILY 01/06 09 AC 01/10 PO 0909 Melatonin 5 MG ONCE ONE 01/09 2045 DC 01/09 PO 01/09 Nystatin 5 ML 4 TIMES/DAY 01/10 0937 AC PO Polyethylene Glycol 17 GM DAILY 01/08 1002 AC 01/08 PO 1301 Senna/Docusate Sodium 2 TAB DAILY PRN 01/08 1015 AC 01/08 PO 1301 Assessment/Plan Assessment/Plan 72-y-o-w-m w/ hx fmr heavy tob use (2 ppd 40+ yrs), HTN, HLD, stroke (lacunar by head CT) who presented to the ED on 01/05/2018 with a 1-1/2 wk of prod cough, congestion, decreased by mouth intake, w/o SOB, LE edema, CP, palps, fever, chills, sick contacts, etc. Additionally, he has been expeiencing generalized weakness since Saturday, 2017 w/ difficulty arising from his recliner. After awakening on 12/31/2017 he "felt funny", had difficulty w/ his memory, speech, swallowing, and gait w/ the suspicion that he is having a neurological events. Neurology reevaluated Mr. Thapa on 01/07/2018 and felt his presentation was c/w an acute right hemispheric infarct. There remains a high likelihood that PAF may have been responsible for his neurological presentation and the plan will be to proceed with the implantation of a Med[employer] Reveal LINQ recording system. Recommendations: * Continue on telemetry to help exclude PAF and schedule for implantation of a Medtronic Reveal LINQ recording system. * Continue high dose statin. * Continue dual antiplatelet therapy. * Physical, occupational, speech therapy. * DVT prophylaxis.
[2018-01-10 14:49] VITALS: BP 116/58
== END 2018-01-10 16:00 | DRG 64 ==
LOC: ERH 10:56 → 1NO 18:09 → ERHI 18:09 → ENRESERV 19:35 → ENTRNSPT 19:56 → 1NO 20:06 → 2NB 20:06 → CMPTRNSPT 20:25 → 2NB 01-06 07:49 → 1NO 01-06 10:50 → ENPENDDIS 01-10 13:41 → 1NO 01-10 16:00
PROVIDERS: Hospitalist; Physician Assistant; Student in an Organized Health Care Education/Training Program
DX: I63.9 Cerebral infarction, unspecified (principal); J18.9 Pneumonia, unspecified organism; R17 Unspecified jaundice; I10 Essential (primary) hypertension; H91.91 Unspecified hearing loss, right ear; Z91.81 History of falling; E78.5 Hyperlipidemia, unspecified; R94.5 Abnormal results of liver function studies; R47.1 Dysarthria and anarthria; R53.1 Weakness
CPT/HCPCS: 1NSP; 2NBSP; 70551; 36592; 71046; 74177; 81001; 82436; 87040; 87070; 87086; 87147; 87449; 87450; 93005; 93010; 93306; 96374; 96375; 97110-GO; 97112-GO; 97116-GO; 97161-GP; 97165-GO; 97530-GO; J0131; J0456; J0696; J1644; J2930; J7040; J7120